=== PATIENT | male | born 1955 | race Caucasian/White ===

== ENCOUNTER 2017-06-13 13:46 | Inpatient (IN) ==
--- NOTE | 2017-06-13 14:29 | Emergency Department Note ---
Weakness HPI - General Chief complaint: Weakness Stated complaint: Weakness Time Seen by Provider: 06/13/17 13:53 Source: patient Mode of arrival: ambulatory Limitations: no limitations - History of Present Illness HPI Narrative: 62-year-old male presents with fatigue 2-3 weeks as well as dizziness. He states that he thought that the dizziness was due to taking his Jardiance before bed so he started taking it earlier in the day but this morning he felt dizzy when he stood up. He states the fatigue is significant and he sleeps all day and all night. He states he feels short of breath but he has sleep apnea and states that when he feels short of breath he uses his CPAP as needed. He does not think this is getting worse necessarily at night. He states that he does not necessarily have shortness of breath when walking but is mildly short of breath now. He was seen at [facility] and had orthostatic vital signs which he felt very dizzy during those. He states he has been drinking a lot of water and is eating well. He has diabetes as well. He does have a history of coronary artery bypass in 1999 and takes Plavix at this time. He denies any dark stools and is having normal bowel movements. He denies any urinary symptoms he denies nausea vomiting or diarrhea. He denies any fever chills but has had this cough for about a month. He states it is dry. He denies any abdominal pain or chest pain. He denies vision changes unless he sits up and gets lightheaded. He denies any headaches. He does take blood pressure medications and states his blood pressure is usually high. He denies any recent weight loss but states that in February 2016 he lost about 50 pounds due to a divorce. He states he has been pretty much stable since then. - Related Data Home Medications Medication Instructions Recorded Confirmed aspirin 81 mg tablet,delayed 81 mg PO QDAY 01/15/16 05/22/17 release ibuprofen 200 mg capsule 800 mg PO ONCE 01/15/16 05/22/17 melatonin 10 mg capsule 10 mg PO HS 01/15/16 05/22/17 Previous Rx's Medication Instructions Recorded omeprazole 20 mg capsule,delayed 20 mg PO QDAY #90 cap 07/08/16 release insulin syringe-needle U-100 1 mL See Dose Instructions .ROUTE 07/10/16 31 gauge x 5/16" .MEDSUPPLY #100 each blood sugar diagnostic strips 0 applic .ROUTE .MEDSUPPLY #100 07/29/16 each MDD 4 times daily losartan 100 mg tablet 100 mg PO QDAY #90 tab 07/30/16 insulin glargine 100 unit/mL 30 unit SUB-Q .nightly #10 ml 10/17/16 subcutaneous solution metformin 1,000 mg tablet 1,000 mg PO BID #180 tab 10/17/16 isosorbide mononitrate ER 60 mg 120 mg PO QAM #180 tab 10/21/16 tablet,extended release 24 hr carvedilol 25 mg tablet 25 mg PO BID #180 tab 02/20/17 clopidogrel 75 mg tablet 75 mg PO QDAY #90 tab 03/07/17 spironolactone 25 mg tablet 25 mg PO QAM #90 tab 03/07/17 blood-glucose meter See Dose Instructions .ROUTE 04/16/17 .MEDSUPPLY #1 each Nitroglycerin [Nitrostat] 0.4 mg SL Q5M PRN #20 tab 05/05/17 empagliflozin 25 mg tablet 25 mg PO QDAY #90 tab 05/05/17 pramipexole 0.25 mg tablet 0.125 mg PO QHS #90 tab 05/08/17 amlodipine 10 mg tablet 10 mg PO QDAY #90 tab 05/12/17 atorvastatin 40 mg tablet 40 mg PO QDAY #90 tab 05/12/17 fluoxetine 20 mg capsule 20 mg PO QDAY #90 cap 05/12/17 furosemide 20 mg tablet 20 mg PO BID #180 tab 05/12/17 gabapentin 600 mg tablet 600 mg PO Q8H #270 tab 05/22/17 Blood Glucose Test strips See Dose Instructions .ROUTE 05/26/17 .MEDSUPPLY #100 each NS MDD 4 times daily Allergies Allergy/AdvReac Type Severity Reaction Status Date / Time No Known Drug Allergies Allergy Verified 06/13/17 13:49 Review of Systems All systems ED: reviewed and negative except as stated. Past Medical History - Past Medical History Medical history: Reports: CHF, coronary artery disease, DM, hyperlipidemia, hypertension, peripheral artery disease, other Psychiatric history: Reports: depression Surgical history ED: Reports: angioplasty/stent, cholecystectomy, coronary bypass (CABG), orthopedic, other (knee) Family history: Reports: non-contributory - Social History smoking status: Never smoker Physical Exam Limitations: no limitations General appearance: alert, in no apparent distress Head: atraumatic Eye: Present: normal appearance. Absent: conjunctival injection Neck: Present: normal inspection, full ROM Chest: Present: normal inspection, symmetric chest wall rise Respiratory: Absent: normal lung sounds bilaterally (decreased lung sounds left lower lobe), wheezes Cardiovascular: Present: regular rate, normal heart sounds, other (right carotid shows very faint bruit on auscultation) Abdominal: Present: soft, normal bowel sounds. Absent: tenderness Extremities: Present: normal inspection, full ROM. Absent: pedal edema Neurological: Present: alert, oriented X3, CN II-XII intact Psychiatric: Present: normal affect, normal mood Skin: Present: warm, dry, intact Course Course Narrative: He was out on 2 liters of oxygen. Never in any distress or tachypneic Vital Signs Temperature 98.3 F 06/13/17 13:47 Pulse Rate 81 06/13/17 13:47 Respiratory Rate 14 06/13/17 13:47 Blood Pressure 113/70 06/13/17 13:47 Pulse Oximetry (%) 94 06/13/17 13:47 Temperature 98.3 F 06/13/17 13:47 Pulse Rate 79 06/13/17 14:46 Respiratory Rate 17 06/13/17 14:16 Blood Pressure 129/73 06/13/17 14:46 Pulse Oximetry (%) 90 06/13/17 14:46 Weakness - MDM Narrative Medical decision making narrative: Previous labs drawn at [facility] and these were reviewed. He had an elevated white count of 16. Mildly elevated calcium. Elevated BUN. He does have an elevated lactic acid as well and had a therapeutic/diagnostic thoracentesis. He will be admitted. - Lab Data Lab results reviewed: Yes I reviewed the patient's lab results. Lab Results 06/13/17 06/13/17 06/13/17 Range/Units 14:23 14:23 14:23 POC PT (11.9-14.5) sec PT POC INR (0.9-1.2) INR D-Dimer TNP VBG Lactic Acid 3.5 H (0.5-2.2) mmol/L Troponin T < 0.01 (0-0.03) ng/ml NT-Pro-B Natriuret Pep (0-125) pg/ml 06/13/17 06/13/17 06/13/17 Range/Units 14:23 14:23 15:25 POC PT 15.2 H (11.9-14.5) sec PT Cancelled POC INR 1.3 H (0.9-1.2) INR Cancelled D-Dimer VBG Lactic Acid (0.5-2.2) mmol/L Troponin T (0-0.03) ng/ml NT-Pro-B Natriuret Pep 484.4 H (0-125) pg/ml - Radiology Data Radiology results reviewed: Yes I reviewed the patient's radiology results. Large left lower pleural effusion - EKG Data EKG attestation: Yes I reviewed and interpreted this EKG. EKG results narrative: No signs of ischemia Disposition Pt seen by DIETITIAN HELPER/PA only: No Clinical Impression: Pleural effusion, Congestive heart failure (CHF), Sepsis Disposition: Xfer As Inpt ([facility]) Condition: Fair Referrals: Fritz Schwartz DO [Primary Care Provider] -
[2017-06-13] MEDS ORDERED: 0.9 % SODIUM CHLORIDE 1,000 ML IV SCH ×2 (14:30→17:04)
[2017-06-13] MEDS ORDERED: cefTRIAXone 1 GM VIAL IV ONE ×2 (14:51→17:22)
--- NOTE | 2017-06-13 14:54 | XRay Report ---
CLINICAL INFORMATION: Cough COMPARISON: 03/23/2016 FINDINGS: Mild cardiomegaly is unchanged. Mediastinum and pulmonary vessels are normal. A large left pleural effusion has developed resulting in compressive atelectasis of the entire left lower lobe and lingula. The lungs are clear. Bones and soft tissues are unremarkable IMPRESSION: Large left pleural effusion resulting in compressive atelectasis of the entire left lower lobe and lingula Interpreted and Authenticated by: Fritz Sood 06/13/17
[2017-06-13 15:28] LABS: proBNP 484.4 pg/ml (0-125)
--- NOTE | 2017-06-13 16:55 | XRay Report ---
CLINICAL INFORMATION: Post left thoracentesis - 2 L of fluid removed COMPARISON: Prethoracentesis two-view chest x-ray from earlier today 06/13/2017 1435 hours FINDINGS: Heart size, mediastinum and pulmonary vessels are normal. Following left thoracentesis, only small residual left pleural effusion. No pneumothorax The left lower lobe and lingula are subtotally reexpanded. The remaining lungs are unremarkable. IMPRESSION: Following left thoracentesis, only small residual pleural effusion. Left lower lobe and lingula have almost totally reexpanded. There is no pneumothorax or other complication from the procedure Interpreted and Authenticated by: Fritz Sood 06/13/17
[2017-06-13] MEDS ORDERED: ACETAMINOPHEN 325 MG TABLET PO PRN (17:04)
[2017-06-13] MEDS ORDERED: ONDANSETRON 4 MG/2 ML VIAL IV PRN (17:04)
[2017-06-13] MEDS ORDERED: HYDROcodone/APAP 5/325MG TABLET PO PRN (17:04)
[2017-06-13] MEDS ORDERED: NALOXONE HCL 0.4 MG/ML VIAL IV PRN (17:04)
--- NOTE | 2017-06-13 17:12 | Ultrasound Report ---
Ultrasound-guided thoracentesis CLINICAL INFORMATION: Large left pleural effusion TECHNIQUE: Procedure and risks including possibility of bleeding, infection, and pneumothorax were explained to the patient. The understood and wished to proceed. With the patient in upright position, the fluid was first sonographically localized over the posterior left 10th intercostal space at posterior axillary line. The skin overlying this region was marked, prepped and locally anesthetized with 1% lidocaine using a 25-gauge needle to the level the parietal pleura. An 18-gauge Yueh needle was then advanced under sonographic guidance into the pleural fluid and approximately 2 L of simple appearing transudative fluid was aspirated. Post procedure scanning shows only minimal residual fluid. Patient tolerated procedure well without apparent complication. Follow-up chest x-ray to be obtained IMPRESSION: Successful thoracentesis yielding 2 L transudative appearing simple pleural fluid. No apparent complication Interpreted and Authenticated by: Fritz Sood 06/13/17
[2017-06-13] MEDS ORDERED: traZODone HCL 50 MG TABLET PO PRN (17:29)
[2017-06-13] MEDS ORDERED: DEXTROSE 31 GM ORAL.SUSP PO PRN (17:29)
[2017-06-13] MEDS ORDERED: DEXTROSE 50% 50 ML VIAL IV PRN (17:29)
[2017-06-13] MEDS ORDERED: NITROGLYCERIN 0.4 MG TAB.SUBL SL PRN (17:29)
[2017-06-13] MEDS ORDERED: cefTRIAXone 2 GM VIAL IV SCH (17:30)
--- NOTE | 2017-06-13 17:39 | Internal Med History&Physical ---
Medical - H&P: HPI Patient information: Note initiated : 06/13/17 at 5:32 pm Service Date, if different from initiated Date: [] Patient: Bishnu Bailey a 62 y/o M admitted on 06/13/17 for Weakness. Chief Complaint: [] History of present illness: Mr. Bailey is a 62 year old Male with h/o cad, dm, htn, s/p cabg, presents ot the ER with complaints of weakness fatigue, poor appertite and c ough x 4 weeks. The patient notes that he was doing ok approximatley 4 weeks ago, the he noted a gradual decline in his condition, he was more tired, and fatigued, wanting to sleep all the time, no desire to eat or drink much. He noted he was very short of breath on minimal activity. this was accompained by a cough, which was dry. There were no aggravating or reliving factors to patients symtpmos, he just progressively got worse. He notes he got dizzy maddi when he stood up or go up, is presently on jardiance. The patient symptoms got worse and therefore he was asked to be seen in the urgent care clinic In the clinic the patient was dizzy, orthostatic were postive and labs showed leucocytosis. He was therefor referred ot the ER for further evaluation In the ER his CXR Was noted to have new onset left sided pleural effusion. Given his elevated leucocytosis, and effusion, and cough, blood cx drawn and rocephin given. Pt also was noted to have elevated lactic acid. pt was sent to [facility] guided thoracocentesis and 2 L clear fluid removed, pt was presented to the hospital for admission. All systems: reviewed and no additional remarkable complaints except as stated ( as per HPI) Medical - H&P: [facility] Medical history: Medical History (Last Reviewed 06/13/17 @ 12:09 by Arely Mosqueda DO) Chest pain (Acute) Burn (Acute) Toe sprain (Acute) Dental abscess (Acute) Suicidal ideation (Acute) Pleural effusion (Acute) Sepsis (Acute) Fatigue (Acute) Slow transit constipation (Chronic) Chronic pain syndrome (Chronic) PVD (peripheral vascular disease) (Chronic) Pain aggravated by physical activity (Chronic) Muscle weakness (Chronic) Localized edema (Chronic) Left leg weakness (Chronic) Edema of left lower extremity (Chronic) Left leg cellulitis (Chronic) Rash and other nonspecific skin eruption (Chronic) Problem related to primary support group (Chronic) Rash of groin (Chronic) Family dysfunction (Chronic) 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) Pain (Chronic) FPC (current) use of insulin (Chronic) Major depressive disorder, recurrent episode (Chronic) Muscular abdominal pain in left flank (Chronic) Other forms of angina pectoris (Chronic) Postsurgical aortocoronary bypass status (Chronic) Angina of effort (Chronic) Morbid obesity with BMI of 40.0-44.9, adult (Chronic) Insomnia (Chronic) Obstructive sleep apnea (Chronic) Tobacco use disorder (Chronic) Aortocoronary bypass status (Chronic) Mixed hyperlipidemia (Chronic) Major depressive disorder with single episode (Chronic) Hypertensive heart disease with CHF (Chronic) Heart disease (Chronic) Atherosclerosis of autologous artery coronary artery bypass graft with unstable angina pectoris (Chronic) Combined pelvic and perineal pain in male (Chronic) Hx of colonic polyp (Chronic) Change in bowel habits (Chronic) Benign hypertensive heart disease with CHF (congestive heart failure) (Chronic) Uncontrolled type 2 diabetes mellitus with peripheral neuropathy (Chronic) Pelvic pain (Chronic) 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) Pain of left hip (Chronic) Hypotension (Acute) Reflux esophagitis (Chronic) Psychosexual dysfunction (Chronic) Mild diastolic dysfunction (Chronic) Tobacco use disorder (Chronic) Impotence, organic (Chronic) Coronary artery disease involving autologous artery coronary bypass graft with unstable angina pectoris (Chronic) Constipation (Chronic) Iron deficiency anemia (Chronic) Vitamin D deficiency (Chronic) Morbid obesity (Chronic) Allergic rhinitis (Chronic) RLS (restless legs syndrome) (Chronic) Left leg pain (Chronic) Obstructive sleep apnea (Chronic) Congestive heart failure (CHF) (Chronic) Cardiomyopathy, hypertensive (Chronic) Angina pectoris (Chronic) Insomnia (Chronic) High cholesterol (Chronic) Hypertension (Chronic) Heart trouble (Chronic) Type 2 diabetes mellitus (Chronic) Depression (Chronic) Surgical history: Past Surgical History (Last Reviewed 03/24/17 @ 09:13 by Fritz Schwartz DO) History of cholecystectomy (Chronic) History of heart bypass surgery (Chronic) History of knee surgery (Chronic) Pertinent family history: Family History (Last Reviewed 03/24/17 @ 09:13 by Fritz Schwartz DO) Family/Other Hypertension N/o lung cnacer h/o cancer in family, brother, he is not sure what type of cancer Medical - H&P: Meds Home Medications Medication Instructions Recorded Confirmed Type aspirin 81 mg tablet,delayed 81 mg PO QDAY 01/15/16 05/22/17 History release ibuprofen 200 mg capsule 800 mg PO ONCE 01/15/16 05/22/17 History melatonin 10 mg capsule 10 mg PO HS 01/15/16 05/22/17 History omeprazole 20 mg capsule,delayed 20 mg PO QDAY #90 cap 07/08/16 05/22/17 Rx release insulin syringe-needle U-100 1 mL See Dose Instructions .ROUTE 07/10/16 Rx 31 gauge x 10/22" .MEDSUPPLY #100 each blood sugar diagnostic strips 0 applic .ROUTE .MEDSUPPLY #100 07/29/16 05/22/17 Rx each MDD 4 times daily losartan 100 mg tablet 100 mg PO QDAY #90 tab 07/30/16 05/22/17 Rx insulin glargine 100 unit/mL 30 unit SUB-Q .nightly #10 ml 10/17/16 05/22/17 Rx subcutaneous solution metformin 1,000 mg tablet 1,000 mg PO BID #180 tab 10/17/16 05/22/17 Rx isosorbide mononitrate ER 60 mg 120 mg PO QAM #180 tab 10/21/16 05/22/17 Rx tablet,extended release 24 hr carvedilol 25 mg tablet 25 mg PO BID #180 tab 02/20/17 05/22/17 Rx clopidogrel 75 mg tablet 75 mg PO QDAY #90 tab 03/07/17 05/22/17 Rx spironolactone 25 mg tablet 25 mg PO QAM #90 tab 03/07/17 05/22/17 Rx blood-glucose meter See Dose Instructions .ROUTE 04/16/17 05/22/17 Rx .MEDSUPPLY #1 each Nitroglycerin [Nitrostat] 0.4 mg SL Q5M PRN #20 tab 05/05/17 05/22/17 Rx empagliflozin 25 mg tablet 25 mg PO QDAY #90 tab 05/05/17 05/22/17 Rx pramipexole 0.25 mg tablet 0.125 mg PO QHS #90 tab 05/08/17 05/22/17 Rx amlodipine 10 mg tablet 10 mg PO QDAY #90 tab 05/12/17 05/22/17 Rx atorvastatin 40 mg tablet 40 mg PO QDAY #90 tab 05/12/17 05/22/17 Rx fluoxetine 20 mg capsule 20 mg PO QDAY #90 cap 05/12/17 05/22/17 Rx furosemide 20 mg tablet 20 mg PO BID #180 tab 05/12/17 05/22/17 Rx gabapentin 600 mg tablet 600 mg PO Q8H #270 tab 05/22/17 05/22/17 Rx Blood Glucose Test strips See Dose Instructions .ROUTE 05/26/17 Rx .MEDSUPPLY #100 each NS MDD 4 times daily Allergies Allergy/AdvReac Type Severity Reaction Status Date / Time No Known Drug Allergies Allergy Verified 06/13/17 13:49 Medical - H&P: Exam - Constitutional Vitals: Temp Pulse Resp BP Pulse Ox 98.3 F 79 17 129/73 90 06/13/17 16:55 06/13/17 16:55 06/13/17 16:55 06/13/17 16:55 06/13/17 16:55 Exam: GENERAL: The patient is a well-developed, well-nourished in no apparent distress. Is alert and oriented x3. VITAL SIGNS: Reviewed and as noted elsewhere. HEENT: Head is normocephalic and atraumatic. Extraocular muscles are intact. Pupils are equal, round, and reactive to light. Nares appeared normal. Mouth appears any without lesions. Mucous membranes are dry NECK: Normal to inspection, Supple, No lymphadenopathy or thyromegaly. LUNGS: Air entry decreased on left base, some left basilar crackles, no wheezing ,. No accessory muscles of respiration HEART: Regular rate and rhythm normal, S1 and S2 heard, no Gallop, S3 or Rub Noted, No Gross murmur heard. ABDOMEN: Soft, nontender, and nondistended. Positive bowel sounds. No hepatosplenomegaly was noted. EXTREMITIES: No cyanosis, clubbing, rash, lesions or edema. NEUROLOGIC: Cranial nerves II through XII are grossly intact. Motor and Sensory System Grossly Intact PSYCHIATRIC: Normal affect, Normal Mood. Appropriate Behavior. SKIN: No ulceration or wounds noted, No jaundice, No rash noted. Medical - H&P: Reslt - Labs Labs: Cardiac Enzymes 01/05/18 Range/Units 14:23 Troponin T < 0.01 (0-0.03) ng/ml Medical - H&P: A/P - Narrative A/P Narrative: A/P Leucocytosis/ Weakness: likely secondary to pna, iv rocephin and zithromax, follow cultures Pleural effusion: new onset, 2L fluid removed, repeat x ray shows still some fluid left, plan to get CT in AM if transudative fluid, await results of fluid analysis. DM: Hold oral meds, start on lantus and ssi while inpatient. Hypotension/ Relative/ Dizziness/ Orthostatic symptoms: Due to dehydration, poor oral intake, hold amlodipine and isosorbide and lasix, continue coreg, losartan and aldactone. IV fluids, BP is quite good, give 4 L saline. (hold if gets sob) Lactic acidosis: IV fluids, recheck lactate, BP is quite good in the hospital, HTN: continue coreg, aldactone, losartan, hold lasix, isosorbide and amlodpine for now. CAD: S/P cabg, no chest pain, trop neg, resume asa, plavix, and beta kelton. HLD on statin continue same Neuropathy: on neurontin, continue same Depression: on fluoexetine, continue same DVT hep sq Diet Carb Consistent, Cardiac, Full code. Social History - Social History marital status: - Tobacco smoking status: Never smoker - Alcohol alcohol intake frequency: does not drink - Substance use substance use type: does not use
[2017-06-13 18:07] LABS: Amylase,Pleural Fluid 68 U/L; Glucose,Pleural Fluid 148 mg/dL; LDH,Pleural Fluid 146 U/L
[2017-06-13 18:13] LABS: pH,Body Fluid 7.54
[2017-06-13 18:43] LABS: Appearance,Pleural Fluid CLOUDY; Color,Pleural Fluid YELLOW; Lymphocytes,Pleural Fluid 42 %; Neutrophils,Pleural Fluid 45 %; Nucleated Cells,Pleural Fld 980 /cumm; RBC,Pleural Fluid < 50000 /cumm
[2017-06-13] MEDS ORDERED: AZITHROMYCIN 500 MG in DEXTROSE 5% IN WATER 250 ML IV ONE (19:00)
[2017-06-13] MEDS: CARVEDILOL 12.5 MG TABLET PO SCH (19:13)
[2017-06-13 19:34] LABS: Total Protein,Body Fluid 3.7 gm/dL
[2017-06-13] MEDS: IPRATROPIUM/ALBUTEROL 3 ML AMPUL.NEB NEB SCH (19:45)
[2017-06-13] MEDS ORDERED: PRAMIPEXOLE 0.25 MG TABLET PO SCH (21:00)
[2017-06-13] MEDS ORDERED: INSULIN GLARGINE, HUMAN 1 UNIT/0.01 ML SQ SCH (21:00)
[2017-06-13] MEDS ORDERED: ATORVASTATIN 20 MG TABLET PO SCH (21:00)
[2017-06-13] MEDS: 0.9 % SODIUM CHLORIDE 1,000 ML IV SCH (21:27)
[2017-06-13] MEDS: HEPARIN 5,000 UNIT/ML VIAL SQ SCH (21:34)
[2017-06-13] MEDS: INSULIN LISPRO 1 UNIT/0.01 ML UNIT SQ SCH (21:34)
[2017-06-13] MEDS: FAMOTIDINE 20 MG TABLET PO SCH (21:35)
[2017-06-13] MEDS: GABAPENTIN 300 MG CAPSULE PO SCH (21:35)
[2017-06-13 22:03] LABS: Appearance,Urine CLEAR; Bacteria,Urine 0 /hpf (0); Bilirubin,Urine NEG (NEG); Color,Urine YELLOW; Glucose,Urine (UA) >=500 mg/dL (NEG); Leukocyte Esterase,Urine NEG /uL (NEG); Mucus,Urine FEW /hpf (0); Nitrate,Urine NEG (NEG); Protein,Urine NEG (NEG); Specific Gravity,Urine 1.028 (1.000-1.035); Urine Blood NEG mg/dL (<0.03); Urine RBC < 1 /hpf (0-1); Urine Squamous Epithelial Cell 0 /hpf (0-4); Urine WBC < 1 /hpf (0-4); Urobilinogen,Urine NEG (NEG)
[2017-06-14] MEDS: IPRATROPIUM/ALBUTEROL 3 ML AMPUL.NEB NEB SCH ×4 (02:18→19:33)
[2017-06-14] MEDS: 0.9 % SODIUM CHLORIDE 1,000 ML IV SCH (02:52)
[2017-06-14] MEDS: GABAPENTIN 300 MG CAPSULE PO SCH ×3 (05:48→21:41)
[2017-06-14 06:15] LABS: Basophils # (Auto) 0 K/mcL (0.0-0.3); Basophils % (Auto) 0.2 % (0.0-2.0); Eosinophils # (Auto) 0.1 K/mcL (0.0-0.7); Eosinophils % (Auto) 1.3 % (0.0-7.0); Granulocytes % (Auto) 79.9 % (38.0-78.0); Lymphocytes # (Auto) 1.1 K/mcL (1.5-4.8); Lymphocytes % (Auto) 10.3 % (15.5-49.0); Mean Cell Volume 79.1 fL (80.0-100.0); Mean Corpuscular HGB Conc 32.5 g/dL (31.0-36.0); Mean Corpuscular Hemoglobin 25.8 pg (26.0-34.0); Monocytes # (Auto) 0.9 K/mcL (0.1-0.9); Monocytes % (Auto) 8.3 % (1.0-12.0); Platelet Count 166 K/mcL (140-440); RBC 4.02 M/mcL (4.50-5.90); Red Cell Distribution Width 14.3 % (11.5-14.5)
[2017-06-14 06:19] LABS: ALT/SGPT 6 U/l (0-40); Albumin 2.5 gm/dL (3.2-5.2); Albumin/Globulin Ratio 0.9 (1.0-2.3); Alkaline Phosphatase 79 U/L (39-117); Bilirubin,Direct < 0.2 mg/dL (0.0-0.3); Blood Urea Nitrogen 24 mg/dl (8-23); Gamma Glutamyl Transpeptidase 11 U/L (8-61); Magnesium 1.3 mg/dL (1.6-2.5); Uric Acid 5.7 mg/dL (2.5-8.0)
[2017-06-14] MEDS ORDERED: OMEPRAZOLE 20 MG CAPSULE PO SCH (07:30)
[2017-06-14] MEDS ORDERED: SPIRONOLACTONE 25 MG TABLET PO SCH (09:00)
[2017-06-14] MEDS ORDERED: LOSARTAN 50 MG TABLET PO SCH (09:00)
[2017-06-14] MEDS ORDERED: AZITHROMYCIN 250 MG TABLET PO SCH (09:00)
[2017-06-14] MEDS ORDERED: ASPIRIN 81 MG TAB.CHEW PO SCH (09:00)
[2017-06-14] MEDS ORDERED: CLOPIDOGREL 75 MG TABLET PO SCH (09:00)
[2017-06-14] MEDS ORDERED: FLUoxetine HCL 20 MG CAPSULE PO SCH (09:00)
[2017-06-14] MEDS ORDERED: cefTRIAXone 2 GM VIAL IV SCH (09:00)
[2017-06-14] MEDS ORDERED: IOPAMIDOL 100 ML BOTTLE IV ONE (09:25)
[2017-06-14] MEDS: CARVEDILOL 12.5 MG TABLET PO SCH ×2 (09:35→17:29)
[2017-06-14] MEDS: HEPARIN 5,000 UNIT/ML VIAL SQ SCH ×2 (09:35→21:43)
[2017-06-14] MEDS: FAMOTIDINE 20 MG TABLET PO SCH ×2 (09:35→21:41)
[2017-06-14] MEDS: INSULIN LISPRO 1 UNIT/0.01 ML UNIT SQ SCH ×4 (09:38→21:42)
--- NOTE | 2017-06-14 12:00 | Internal Med Progress Note ---
Medical - PN: Subj Patient information: Note initiated : 06/14/17 at 11:55 am Service Date, if different from initiated Date: [] Patient: Bishnu Bailey a 62 y/o M admitted on 06/13/17 for Weakness. Chief Complaint: [] Interval history: Mr. Bailey is a 62 year old Male with h/o cad, dm, htn, s/p cabg, presents ot the ER with complaints of weakness fatigue, poor appertite and c ough x 4 weeks. The patient notes that he was doing ok approximatley 4 weeks ago, the he noted a gradual decline in his condition, he was more tired, and fatigued, wanting to sleep all the time, no desire to eat or drink much. He noted he was very short of breath on minimal activity. this was accompained by a cough, which was dry. There were no aggravating or reliving factors to patients symtpmos, he just progressively got worse. He notes he got dizzy maddi when he stood up or go up, is presently on jardiance. The patient symptoms got worse and therefore he was asked to be seen in the urgent care clinic In the clinic the patient was dizzy, orthostatic were postive and labs showed leucocytosis. He was therefor referred ot the ER for further evaluation In the ER his CXR Was noted to have new onset left sided pleural effusion. Given his elevated leucocytosis, and effusion, and cough, blood cx drawn and rocephin given. Pt also was noted to have elevated lactic acid. pt was sent to [facility] guided thoracocentesis and 2 L clear fluid removed, pt was presented to the hospital for admission. Jun 14 Patient seen examined, no acute overnight issues, tolerating po diet well, was sitting at the table and enjoying his breakfast He did not sleep well but beyond that did not have any other issues his labs show improved wbc, his CT scan done this AM read pending, Pleural fluid analysis shows exudative fluid by ldh and protein criteria, cytoloy pending, ph not suggestive of empyema, microbiology neg so far. Pertinent ROS: Denies headache, Denies chest pain, palpitations prseent cough and sob. Denies abdominal pain, nausea or vomiting. - Constitutional Vitals: Vital Signs Temp Pulse Resp BP Pulse Ox 98.0 F 82 16 141/90 93 06/14/17 06:15 01/06/18 07:51 06/14/17 07:51 06/14/17 06:15 06/14/17 07:51 Period Temp Pulse Resp BP Sys/Monzon Pulse Ox Last 24 Hr 98.0 F-99.6 F 73-82 14-19 113-160/69-90 90-96 Intake and Output 06/13/17 06/14/17 06/14/17 21:59 05:59 13:59 Intake Total 1600 / 1600 200 / 200 Output Total 1100 / 1100 500 / 500 Balance 500 / 500 -300 / -300 Weight 242 lb Intake & Output: Intake & Output 06/13/17 06/14/17 06/14/17 21:59 05:59 13:59 Intake Total 1600 / 1600 200 / 200 Output Total 1100 / 1100 500 / 500 Balance 500 / 500 -300 / -300 Weight 242 lb Intake: IV 1000 / 1000 Sodium Chloride 0.9% 1,000 ml @ 1000 / 1000 125 mls/hr IV .Q8H [facility] Rx#: [id number] Oral 600 / 600 200 / 200 Output: Void Amount 1100 / 1100 500 / 500 Other: Meal Breakfast Percent of Meal Consumed 100% Feeding Ability Independent # Voids 1 Exam: Constitutional; Afebrile, cooperative, alert, not in distress. Eyes- No icterus, , No periorbital swelling Ears- Ext ear normal, hearing normal to conversation. Neck- Midline trachea, supple Respiratory system: Air Entry decrease on left base, no crackles on right no wheezing, not in resp distress. CVS- Rate rhythm regular, S1,S2 heard, no gallop, no rub. 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 Medical - PN: Obj Da - Labs CBC & Chem 7: 06/14/17 03:39 06/14/17 03:39 Labs: Abnormal Lab Results 06/14/17 06/14/17 06/13/17 03:39 03:39 21:20 RBC 4.02 L Hgb 10.4 L Hct 31.8 L MCV 79.1 L MCH 25.8 L Gran % 79.9 H Lymph % (Auto) 10.3 L Gran # 8.4 H Lymph # (Auto) 1.1 L POC PT POC INR VBG Lactic Acid BUN 24 H Glucose 139 H Phosphorus 2.1 L Magnesium 1.3 L NT-Pro-B Natriuret Pep Total Protein 5.3 L Albumin 2.5 L Albumin/Globulin Ratio 0.9 L Triglycerides 198 H Urine Glucose (UA) >=500 A 06/13/17 06/13/17 06/13/17 16:48 15:25 14:23 RBC Hgb Hct MCV MCH Gran % Lymph % (Auto) Gran # Lymph # (Auto) POC PT 15.2 H POC INR 1.3 H VBG Lactic Acid BUN Glucose Phosphorus Magnesium NT-Pro-B Natriuret Pep 484.4 H Total Protein 5.6 L Albumin Albumin/Globulin Ratio Triglycerides Urine Glucose (UA) 06/13/17 14:23 RBC Hgb Hct MCV MCH Gran % Lymph % (Auto) Gran # Lymph # (Auto) POC PT POC INR VBG Lactic Acid 3.5 H BUN Glucose Phosphorus Magnesium NT-Pro-B Natriuret Pep Total Protein Albumin Albumin/Globulin Ratio Triglycerides Urine Glucose (UA) Meds: Medications Acetaminophen (Tylenol) 650 mg PO Q6HP PRN PRN Reason: PAIN/FEVER > 101 Hydrocodone Bitart/Acetaminophen (Rolette 5/325mg) 1 tab PO Q4HP PRN PRN Reason: PAIN LEVEL 3-6 Albuterol/Ipratropium (Duoneb) 3 ml NEB Q6HRT [facility] Last Admin: 06/14/17 07:50 Dose: 3 ml Aspirin (Aspirin) 81 mg PO DAILY [facility] Last Admin: 06/14/17 09:35 Dose: 81 mg Atorvastatin Calcium (Lipitor) 40 mg PO HS [facility] Last Admin: 06/13/17 21:41 Dose: 40 mg Azithromycin (Zithromax) 250 mg PO DAILY [facility] Stop: 06/17/17 09:01 Last Admin: 06/14/17 09:35 Dose: 250 mg Carvedilol (Coreg) 25 mg PO BIDCC [facility] Last Admin: 06/14/17 09:35 Dose: 25 mg Ceftriaxone Sodium (Rocephin) 2 gm IV Q24H [facility] Last Admin: 06/14/17 09:42 Dose: 2 gm Clopidogrel Bisulfate (Plavix) 75 mg PO DAILY [facility] Last Admin: 06/14/17 09:35 Dose: 75 mg Dextrose (Dextrose 50%) 0 ml IV UD PRN PRN Reason: Hypoglycemia Diagnostic Test (Pha) (Accu-Chek) 1 each FS ACHS [facility] Last Admin: 06/14/17 09:38 Dose: 1 each Famotidine (Pepcid) 20 mg PO BID [facility] Last Admin: 06/14/17 09:35 Dose: 20 mg Fluoxetine HCl (Prozac) 20 mg PO DAILY [facility] Last Admin: 06/14/17 09:35 Dose: 20 mg Gabapentin (Neurontin) 600 mg PO Q8 [facility] Last Admin: 06/14/17 05:48 Dose: 600 mg Glucose (Insta-Glucose) 15 gm PO PRN PRN PRN Reason: Hypoglycemia Heparin Sodium (Porcine) (Heparin) 5,000 unit SQ Q12 [facility] Last Admin: 06/14/17 09:35 Dose: 5,000 unit Sodium Chloride (Sodium Chloride 0.9%) 1,000 mls @ 125 mls/hr IV .Q8H [facility] Stop: 06/14/17 12:39 Last Admin: 06/14/17 02:52 Dose: 125 mls/hr Insulin Glargine (Lantus) 30 unit SQ [facility] Last Admin: 06/13/17 21:34 Dose: 30 unit Insulin Human Lispro (Humalog) 0 unit SQ [facility] PRN Reason: Protocol Last Admin: 06/14/17 09:38 Dose: 3 unit Losartan Potassium (Cozaar) 100 mg PO DAILY [facility] Last Admin: 06/14/17 09:35 Dose: 100 mg Naloxone HCl (Narcan) 0.1 mg IV Q2MIN PRN PRN Reason: Opiate Reversal Nitroglycerin (Nitrostat) 0.4 mg SL Q5M PRN PRN Reason: Chest Pain Omeprazole (Prilosec) 20 mg PO ACB [facility] Last Admin: 06/14/17 09:35 Dose: 20 mg Ondansetron HCl (Zofran) 4 mg IV Q4HP PRN PRN Reason: Nausea And Vomiting Pramipexole Dihydrochloride (Mirapex) 0.125 mg PO HS [facility] Last Admin: 06/13/17 21:42 Dose: 0.125 mg Spironolactone (Aldactone) 25 mg PO DAILY [facility] Last Admin: 06/14/17 09:35 Dose: 25 mg Trazodone HCl (Desyrel) 25 mg PO HSP PRN PRN Reason: Insomnia Medical - PN: A/P - Time Spent With Patient Total time spent is greater than 50% in coordination of care (as documented) at patient's floor/unit and/or counseling patient: - Narrative A/P Narrative: A/P Leucocytosis/ Weakness/ Pneumonia : Wbc count back to normal today, likely secondary to pna, iv rocephin and zithromax, follow cultures, neg growth so far. Pleural effusion, Exudative by LDH/ Protein Criteria : new onset due to pna? , 2L fluid removed yesterday, still some fluid present, CT done this AM, results pending. DM: Hold oral meds, start on lantus and ssi while inpatient. Glucose elevated, on lantus 30, qhs, and humalong ssi, increase from low to medium scale protocol. Hypotension/ Relative/ Dizziness/ Orthostatic symptoms: Due to dehydration, poor oral intake, hold amlodipine and isosorbide and lasix, continue coreg, losartan and aldactone. IV fluids, bp stable so far, pt tolerating po diet well , Lactic acidosis: IV fluids, recheck lactate, BP is quite good in the hospital, HTN: continue coreg, aldactone, losartan, hold lasix,dnd amlodpine for now. Given that bp is stable and elevated, resume isosorbide today. CAD: S/P cabg, no chest pain, trop neg, resume asa, plavix, and beta kelton and nitrate. HLD on statin continue same Neuropathy: on Neurontin, continue same Depression: on fluoxetine, continue same DVT hep sq Diet Carb Consistent, Cardiac, Full code. Medical - PN: Qual - Stroke Symptom Onset Unknown: No - VTE Deep Vein Thrombosis/Pulmonary Embolism Present on Admission: No
[2017-06-14] MEDS ORDERED: INSULIN LISPRO 1 UNIT/0.01 ML UNIT SQ SCH (12:10)
[2017-06-14] MEDS ORDERED: ISOSORBIDE MONONITRATE 60 MG TAB.XL.24H PO SCH (12:15)
--- NOTE | 2017-06-14 12:35 | Cat Scan Report ---
CLINICAL INFORMATION: Unexplained left pleural effusion COMPARISON: None. TECHNIQUE: 80 cc of Isovue-300 were injected intravenously, and 25 seconds later, 0.625 mm helical slices were obtained from the lung apices through the bases. Following reconstruction, 2.5 mm sagittal, coronal and axial reformations were processed and reviewed at lung, mediastinal and bone windows. 7 mm axial MIPS were also obtained to optimize pulmonary nodule detection. The exam was performed using radiation dose optimization techniques including, but not limited to, automated exposure control, adjustment of the mA and/or kV according to patient size and use of iterative reconstruction technique. FINDINGS: The study was performed less than 24 hours after left thoracentesis yielding 2 L of fluid. There is a moderate recurrent left pleural effusion with compressive atelectasis of the entire left lower lobe with sparing of the superior segment. There is also moderate atelectasis of the distal superior and inferior lingula. Small right pleural effusion is noted with subsegmental atelectasis in the posterior right lower lobe. There is no pulmonary mass appreciated there is however a moderate sized enlarged lymph nodes within both danya and the inferior mediastinum including the pericarinal and azygos region. Lymph nodes range up to 16 mm. The thoracic aorta is normal in contour and caliber. There is mild enlargement central pulmonary arteries - main pulmonary diameter is 3.5 cm. This suggests pulmonary hypertension. The heart is mildly enlarged and extremely heavy calcific plaque in the coronary arteries. Sternotomy changes noted from CABG. Images through the abdomen show a small amount of ascites. There is a 7 cm low-attenuation mass within the spleen which was not seen on localizer images of the abdomen on a lumbar spine MRI nearly one year prior November 26, 2016 There is also marked increased infiltrative soft tissue in the upper retroperitoneum. This is incompletely imaged but is suspicious for either a large conglomerate of adenopathy or less likely pancreatic mass with adenopathy. The liver is grossly normal. IMPRESSION: 1. Moderate/large left pleural effusion rapidly reaccumulating following thoracentesis 24 hours prior. The effusion results in subtotal atelectasis of the left lower lobe sparing only superior segment and also lingular atelectasis. A small right pleural effusion with minor right basilar atelectasis is also noted. 2. Mildly enlarged lymph nodes in both danya and inferior mediastinum which may be benign reactive lymph note, metastatic from an unknown primary carcinoma or lymphoma. 3. Images through the abdomen show a large infiltrating upper retroperitoneal mass. A large conglomerate retroperitoneal adenopathy is suspected which could indicate lymphoma or metastatic disease from a an incompletely imaged abdominal tumor such as pancreatic cancer. It is incompletely evaluated on this chest CT study. There is also a 7 cm low-attenuation mass in the spleen which was not seen on MRI one year are and suspicious for metastases. Suggest: Abdomen and pelvic CT with oral and IV contrast. 4. Mild ascites - new Interpreted and Authenticated by: Fritz Sood 06/14/17
[2017-06-14] MEDS ORDERED: DEXTROSE 31 GM ORAL.SUSP PO PRN (14:45)
[2017-06-14] MEDS ORDERED: DEXTROSE 50% 50 ML VIAL IV PRN (14:45)
[2017-06-14] MEDS ORDERED: NALOXONE HCL 0.4 MG/ML VIAL IV PRN (14:45)
[2017-06-14] MEDS ORDERED: NITROGLYCERIN 0.4 MG TAB.SUBL SL PRN (14:45)
[2017-06-14] MEDS ORDERED: ONDANSETRON 4 MG/2 ML VIAL IV PRN (14:45)
[2017-06-14] MEDS ORDERED: ACETAMINOPHEN 325 MG TABLET PO PRN (14:45)
[2017-06-14] MEDS ORDERED: MAGNESIUM SULFATE 32.48 MEQ in DEXTROSE 5% IN WATER 100 ML IV ONE (17:30)
[2017-06-14] MEDS ORDERED: MAGNESIUM SULFATE 8.12 MEQ/2 ML VIAL ONE (18:25)
[2017-06-14] MEDS: PRAMIPEXOLE 0.25 MG TABLET PO SCH (21:40)
[2017-06-14] MEDS: traZODone HCL 50 MG TABLET PO PRN (21:41)
[2017-06-14] MEDS: ATORVASTATIN 20 MG TABLET PO SCH (21:41)
[2017-06-14] MEDS: INSULIN GLARGINE, HUMAN 1 UNIT/0.01 ML SQ SCH (21:46)
[2017-06-15] MEDS: IPRATROPIUM/ALBUTEROL 3 ML AMPUL.NEB NEB SCH ×4 (00:07→19:04)
[2017-06-15] MEDS: HYDROcodone/APAP 5/325MG TABLET PO PRN ×2 (03:19→18:49)
[2017-06-15 05:27] LABS: Basophils # (Auto) 0 K/mcL (0.0-0.3); Basophils % (Auto) 0.1 % (0.0-2.0); Eosinophils # (Auto) 0.2 K/mcL (0.0-0.7); Eosinophils % (Auto) 1.5 % (0.0-7.0); Lymphocytes # (Auto) 0.9 K/mcL (1.5-4.8); Lymphocytes % (Auto) 9.2 % (15.5-49.0); Mean Cell Volume 79.3 fL (80.0-100.0); Mean Corpuscular HGB Conc 32.8 g/dL (31.0-36.0); Monocytes # (Auto) 0.7 K/mcL (0.1-0.9); Monocytes % (Auto) 7.2 % (1.0-12.0); Platelet Count 149 K/mcL (140-440); RBC 3.75 M/mcL (4.50-5.90)
[2017-06-15] MEDS: GABAPENTIN 300 MG CAPSULE PO SCH ×3 (05:44→21:29)
[2017-06-15 06:03] LABS: ALT/SGPT 6 U/l (0-40); Albumin 2.9 gm/dL (3.2-5.2); Albumin/Globulin Ratio 1.2 (1.0-2.3); Alkaline Phosphatase 72 U/L (39-117); Bilirubin,Direct < 0.2 mg/dL (0.0-0.3); Blood Urea Nitrogen 22 mg/dl (8-23); Gamma Glutamyl Transpeptidase 9 U/L (8-61); Magnesium 1.9 mg/dL (1.6-2.5); Uric Acid 4.7 mg/dL (2.5-8.0)
[2017-06-15] MEDS: INSULIN LISPRO 1 UNIT/0.01 ML UNIT SQ SCH ×4 (07:01→21:28)
[2017-06-15] MEDS: cefTRIAXone 2 GM VIAL IV SCH (09:47)
[2017-06-15] MEDS: HEPARIN 5,000 UNIT/ML VIAL SQ SCH ×2 (09:49→21:28)
[2017-06-15] MEDS: ASPIRIN 81 MG TAB.CHEW PO SCH (09:49)
[2017-06-15] MEDS: AZITHROMYCIN 250 MG TABLET PO SCH (09:50)
[2017-06-15] MEDS: CLOPIDOGREL 75 MG TABLET PO SCH (09:50)
[2017-06-15] MEDS: FLUoxetine HCL 20 MG CAPSULE PO SCH (09:50)
[2017-06-15] MEDS: OMEPRAZOLE 20 MG CAPSULE PO SCH (09:51)
[2017-06-15] MEDS: CARVEDILOL 12.5 MG TABLET PO SCH ×2 (09:51→18:18)
[2017-06-15] MEDS: FAMOTIDINE 20 MG TABLET PO SCH ×2 (09:51→21:29)
[2017-06-15] MEDS: SPIRONOLACTONE 25 MG TABLET PO SCH (09:52)
[2017-06-15] MEDS: LOSARTAN 50 MG TABLET PO SCH (09:52)
[2017-06-15] MEDS: ISOSORBIDE MONONITRATE 60 MG TAB.XL.24H PO SCH (09:53)
--- NOTE | 2017-06-15 10:28 | Cat Scan Report ---
CLINICAL INFORMATION: Abdominal pain COMPARISON: Localizer images from Lumbar MRI from 03/29/2016 and 07/29/2016 pelvic MRI 11/30/2015. TECHNIQUE: Following enteric contrast, 80 cc of Isovue-300 were injected intravenously, and 60 seconds later, 0.625 mm helical slices were obtained from the mid heart through the subtrochanteric regions. Following reconstruction, 2.5 mm sagittal, coronal and axial reformatted images were processed and reviewed at bone, lung and soft tissue windows. Five minutes later, 0.625 mm helical slices were obtained from the mid heart through the kidneys and viewed at soft tissue windows.The exam was performed using radiation dose optimization techniques including, but not limited to, automated exposure control, adjustment of the mA and/or kV according to patient size and use of iterative reconstruction technique. FINDINGS: Moderate left pleural effusion and left lower lobe atelectasis with small right pleural effusion and subsegmental right lower lobe lobe atelectasis are unchanged in the region chest CT. The heart is mildly enlarged and there is heavy calcific plaque in the coronary arteries. Images through the abdomen show liver is normal size and configuration with mild portal triad edema. The gallbladder is surgically absent. The bile ducts are normal caliber - CBD is 6 mm. The right kidney is unremarkable. 8 cm simple cyst inferior pole left kidney demonstrates long-term stability. There is a 10 cm inhomogeneous low-attenuation lesion dominating the peripheral spleen which was not seen on older studies. There is massive retroperitoneal consolidated adenopathy throughout the abdomen including peripancreatic periaortic and pericaval region regions. There are also moderately enlarged lymph nodes in the mesenteric root and along the iliac chains There is a 4 cm low-attenuation mass in the left true pelvis, posterior to the external iliac artery and veins, which is likely a large necrotic lymph node but could indicate a second malignant process. Moderate edema in the retroperitoneal and mesenteric regions with small amount of ascites. Subcutaneous edema is also seen throughout the abdomen and pelvis Images should the pelvis show prostate, seminal vesicles and urinary bladder to be normal. Bone windows show no significant abnormality IMPRESSION: 1. Massive conglomerate of retroperitoneal adenopathy, predominantly in the peripancreatic, periaortic and pericaval regions, with enlarged lymph nodes in the mesentery root and along the iliac chains. There is vague 4.3 cm low-attenuation mass posterior to the left external iliac artery/vein which is likely a large necrotic lymph node, but a second process, such as sarcoma, should also be entertained. A 10 cm low-attenuation splenic mass is also new from previous studies. Findings are nearly pathognomonic for Non-Hodgkin's lymphoma. Consider: CT-guided percutaneous biopsy of the lymph node conglomerate and the necrotic left pelvic mass. Of note: The IVC is markedly compressed by the adenopathy placing the patient at risk for DVT 2. Moderate left pleural effusion with left lower lobe atelectasis and small right pleural effusion are unchanged Interpreted and Authenticated by: Fritz Sood 06/15/17
--- NOTE | 2017-06-15 10:30 | Internal Med Progress Note ---
Medical - PN: Subj Patient information: Note initiated : 06/15/17 at 10:19 am Service Date, if different from initiated Date: [] Patient: Bishnu Bailey a 62 y/o M admitted on 06/13/17 for Weakness. Chief Complaint: [] Interval history: Mr. Bailey is a 62 year old Male with h/o cad, dm, htn, s/p cabg, presents ot the ER with complaints of weakness fatigue, poor appertite and c ough x 4 weeks. The patient notes that he was doing ok approximately 4 weeks ago, the he noted a gradual decline in his condition, he was more tired, and fatigued, wanting to sleep all the time, no desire to eat or drink much. He noted he was very short of breath on minimal activity. this was accompained by a cough, which was dry. There were no aggravating or reliving factors to patients symptoms, he just progressively got worse. He notes he got dizzy maddi when he stood up or go up, is presently on jardiance. The patient symptoms got worse and therefore he was asked to be seen in the urgent care clinic In the clinic the patient was dizzy, orthostatic were positive and labs showed leucocytosis. He was therefor referred ot the ER for further evaluation In the ER his CXR Was noted to have new onset left sided pleural effusion. Given his elevated leucocytosis, and effusion, and cough, blood cx drawn and rocephin given. Pt also was noted to have elevated lactic acid. pt was sent to [facility] guided thoracocentesis and 2 L clear fluid removed, pt was presented to the hospital for admission. Jun 14 Patient seen examined, no acute overnight issues, tolerating po diet well, was sitting at the table and enjoying his breakfast He did not sleep well but beyond that did not have any other issues his labs show improved wbc, his CT scan done this AM read pending, Pleural fluid analysis shows exudative fluid by ldh and protein criteria, cytoloy pending, ph not suggestive of empyema, microbiology neg so far. Jun 15 Patient seen examined, feels a bit better, but still tired his X ray shows pleral effusion has recurred, HIs CT abdomen pelvis done today shows possible lymphoma Will get pulmonary advise with regards to management of recurrent pleural effusion maddi in light of malignancy diagnosis, need for pleurx cath vs repeated thoracocentesis. I discussed with Dr Cueva Oncologist crop nutrition scientist, who noted that a tissue sample would be beneficial, Will discuss with surgery vs radiology on the most feasible and efficient way to get adequate tissue sample. Cytology for pleural fluid was ordered. Plan of care reviewed with the patient, who is in agreement with same. Pertinent ROS: Denies headache, dizziness Denies chest pain, palpitations cough and shortness of breath present, and better today. Denies abdominal pain, nausea or vomiting. - Constitutional Vitals: Vital Signs Temp Pulse Resp BP Pulse Ox 98.3 F 67 16 150/74 94 06/15/17 07:07 06/15/17 07:36 06/15/17 07:36 06/15/17 03:17 06/15/17 08:00 Period Temp Pulse Resp BP Sys/Monzon Pulse Ox Last 24 Hr 97.9 F-99.4 F 67-77 16-18 128-158/66-86 92-96 Intake and Output 06/14/17 06/15/17 06/15/17 21:59 05:59 13:59 Intake Total 468 / 468 1140 / 1140 Output Total 780 / 780 Balance 468 / 468 360 / 360 Weight 244 lb Intake & Output: Intake & Output 06/14/17 06/15/17 06/15/17 21:59 05:59 13:59 Intake Total 468 / 468 1140 / 1140 Output Total 780 / 780 Balance 468 / 468 360 / 360 Weight 244 lb Intake: IV 108 / 108 Oral 360 / 360 1140 / 1140 Output: Void Amount 780 / 780 Other: # Voids 1 Exam: Constitutional; Afebrile, cooperative, alert, not in distress. Eyes- No icterus, , No periorbital swelling Ears- Ext ear normal, hearing normal to conversation. Neck- Midline trachea, supple Respiratory system: Air Entry equal decreased on right side, only right upper zone has breath sounds, no crackles or wheezing. CVS- Rate rhythm regular, S1,S2 heard, no gallop, no rub. 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 Medical - PN: Obj Da - Labs CBC & Chem 7: 06/15/17 03:55 06/15/17 03:55 Labs: Abnormal Lab Results 06/15/17 06/15/17 06/14/17 03:55 03:55 03:39 RBC 3.75 L Hgb 9.8 L Hct 29.8 L MCV 79.3 L MCH Gran % 82.0 H Lymph % (Auto) 9.2 L Gran # 8.4 H Lymph # (Auto) 0.9 L POC PT POC INR VBG Lactic Acid BUN 24 H Glucose 184 H 139 H Phosphorus 2.1 L Magnesium 1.3 L NT-Pro-B Natriuret Pep Total Protein 5.3 L 5.3 L Albumin 2.9 L 2.5 L Albumin/Globulin Ratio 0.9 L Triglycerides 158 H 198 H Urine Glucose (UA) 06/14/17 06/13/17 06/13/17 03:39 21:20 16:48 RBC 4.02 L Hgb 10.4 L Hct 31.8 L MCV 79.1 L MCH 25.8 L Gran % 79.9 H Lymph % (Auto) 10.3 L Gran # 8.4 H Lymph # (Auto) 1.1 L POC PT POC INR VBG Lactic Acid BUN Glucose Phosphorus Magnesium NT-Pro-B Natriuret Pep Total Protein 5.6 L Albumin Albumin/Globulin Ratio Triglycerides Urine Glucose (UA) >=500 A 06/13/17 06/13/17 06/13/17 15:25 14:23 14:23 RBC Hgb Hct MCV MCH Gran % Lymph % (Auto) Gran # Lymph # (Auto) POC PT 15.2 H POC INR 1.3 H VBG Lactic Acid 3.5 H BUN Glucose Phosphorus Magnesium NT-Pro-B Natriuret Pep 484.4 H Total Protein Albumin Albumin/Globulin Ratio Triglycerides Urine Glucose (UA) Meds: Medications Acetaminophen (Tylenol) 650 mg PO Q6HP PRN PRN Reason: PAIN/FEVER > 101 Hydrocodone Bitart/Acetaminophen ([place] 5/325mg) 1 tab PO Q4HP PRN PRN Reason: PAIN LEVEL 3-6 Last Admin: 06/15/17 03:19 Dose: 1 tab Albuterol/Ipratropium (Duoneb) 3 ml NEB Q6HRT [facility] Last Admin: 06/15/17 07:32 Dose: 3 ml Aspirin (Aspirin) 81 mg PO DAILY [facility] Last Admin: 06/15/17 09:49 Dose: 81 mg Atorvastatin Calcium (Lipitor) 40 mg PO [facility] Last Admin: 06/14/17 21:41 Dose: 40 mg Azithromycin (Zithromax) 250 mg PO DAILY [facility] Stop: 06/17/17 09:01 Last Admin: 06/15/17 09:50 Dose: 250 mg [facility] Last Admin: 06/15/17 09:51 Dose: 25 mg Ceftriaxone Sodium (Rocephin) 2 gm IV Q24H [facility] Last Admin: 06/15/17 09:47 Dose: 2 gm Clopidogrel Bisulfate (Plavix) 75 mg PO DAILY [facility] Last Admin: 06/15/17 09:50 Dose: 75 mg Dextrose (Dextrose 50%) 0 ml IV UD PRN PRN Reason: Hypoglycemia Diagnostic Test (Pha) (Accu-Chek) 1 each FS [facility] Last Admin: 06/15/17 07:00 Dose: 1 each Famotidine (Pepcid) 20 mg PO BID [facility] Last Admin: 06/15/17 09:51 Dose: 20 mg Fluoxetine HCl (Prozac) 20 mg PO DAILY [facility] Last Admin: 06/15/17 09:50 Dose: 20 mg Gabapentin (Neurontin) 600 mg PO Q8 [facility] Last Admin: 06/15/17 05:44 Dose: 600 mg Glucose (Insta-Glucose) 15 gm PO PRN PRN PRN Reason: Hypoglycemia Heparin Sodium (Porcine) (Heparin) 5,000 unit SQ Q12 [facility] Last Admin: 06/15/17 09:49 Dose: 5,000 unit Insulin Glargine (Lantus) 30 unit SQ [facility] Last Admin: 06/14/17 21:46 Dose: 30 unit Insulin Human Lispro (Humalog) 0 unit SQ [facility] PRN Reason: Protocol Last Admin: 06/15/17 07:01 Dose: Not Given Isosorbide Mononitrate (Imdur) 120 mg PO DAILY [facility] Last Admin: 06/15/17 09:53 Dose: 120 mg Losartan Potassium (Cozaar) 100 mg PO DAILY [facility] Last Admin: 06/15/17 09:52 Dose: 100 mg Naloxone HCl (Narcan) 0.1 mg IV Q2MIN PRN PRN Reason: Opiate Reversal Nitroglycerin (Nitrostat) 0.4 mg SL Q5M PRN PRN Reason: Chest Pain Omeprazole (Prilosec) 20 mg PO ACB [facility] Last Admin: 06/15/17 09:51 Dose: 20 mg Ondansetron HCl (Zofran) 4 mg IV Q4HP PRN PRN Reason: Nausea And Vomiting Pramipexole Dihydrochloride (Mirapex) 0.125 mg PO HS [facility] Last Admin: 06/14/17 21:40 Dose: 0.125 mg Spironolactone (Aldactone) 25 mg PO DAILY [facility] Last Admin: 06/15/17 09:52 Dose: 25 mg Trazodone HCl (Desyrel) 25 mg PO HSP PRN PRN Reason: Insomnia Last Admin: 06/14/17 21:41 Dose: 25 mg Medical - PN: A/P - Time Spent With Patient Total time spent is greater than 50% in coordination of care (as documented) at patient's floor/unit and/or counseling patient: - Narrative A/P Narrative: A/P Leucocytosis/ Weakness/ Pneumonia : Wbc count back to normal today, likely secondary to pna, iv rocephin and zithromax, follow cultures, neg growth so far. Pleural effusion, Exudative by LDH/ Protein Criteria : likely due to malignancy , pulm consulted, need for drainage? Abdominal Lymphadenopathy: Likely Non hodgkins as per radiology, try to obtain sample in AM DM: Hold oral meds, start on lantus and ssi while inpatient. Glucose improving now, on lantus 30, qhs, and humalong ssi, medium scale protocol. Hypotension/ Relative/ Dizziness/ Orthostatic symptoms: Due to dehydration, poor oral intake, hold amlodipine and isosorbide and lasix, continue coreg, losartan and Aldactone. IV fluids, bp stable so far, pt tolerating po diet well , Lactic acidosis: IV fluids, recheck lactate, BP is quite good in the hospital, HTN: continue coreg, aldactone, losartan and isosorbide,resume lasix today, continue to hold amlodpine for now resume once bp remains stable, CAD: S/P cabg, no chest pain, trop neg, resume asa, plavix, and beta kelton and nitrate. HLD on statin continue same Neuropathy: on Neurontin, continue same Depression: on fluoxetine, continue same DVT hep sq Diet Carb Consistent, Cardiac, Full code. Medical - PN: Qual - Stroke Symptom Onset Unknown: No - VTE Deep Vein Thrombosis/Pulmonary Embolism Present on Admission: No
[2017-06-15] MEDS: FUROSEMIDE 20 MG TABLET PO SCH ×2 (11:04→15:35)
--- NOTE | 2017-06-15 13:53 | General Surgery Consult Note ---
History of Present Illness Patient information: Note initiated : 06/15/17 at 1:51 pm Service Date, if different from initiated Date: [] Patient: Bishnu Bailey 62 y/o M admitted on 06/13/17 for Weakness. Chief Complaint: [] Reason for consult: other (Shortness of breath, general weakness and fatigue; weight loss; diffuse thoracic and intraperitoneal and retroperitoneal lymphadenopathy) History of present illness: 62-year-old male who was admitted on 13 June with complaint of diffuse weakness, shortness of breath, near syncope. He was noted to have hypotension with large left pleural effusion. He also has a history of significant weight loss. He had left thoracentesis. CT of the chest reveal large amount of lymphadenopathy with a large mass of the spleen and lymphadenopathy. Follow-up CT of the abdomen shows large splenic retroperitoneal para-aortic and pericaval nodes. There are also iliac nodes. Patient is felt to have lymphoma and I am consulted to do open tissue biopsy. Based on exam the least invasive procedure would be left axillary or left groin lymphadenectomy. This would get a large volume of tissue and would not delay his therapy for presumed lymphoma. Review of Systems - Constitutional anorexia, fatigue, malaise, night sweats, weakness, weight loss (Over 60 pound weight loss) - EENT Nose, mouth and throat: abnormal hearing, dizziness, headache(s), other ( Tinnitus) - Cardiovascular chest pain at rest, chest pain with activity, dyspnea, dyspnea on exertion, orthopnea, palpatations, rapid heart rate, syncope - Respiratory cough, dyspnea on exertion, chest congestion, pain with cough - Gastrointestinal abdominal pain, constipation, diarrhea, heartburn, nausea - Genitourinary urinary frequency, urinary hesitancy, urinary incontinence - Musculoskeletal abnormal gait (Left foot drop), arthralgias, back pain, joint swelling, limited range of motion, muscle cramps, muscle weakness, myalgias, radiating pain into limb, stiffness - Integumentary no changing lesions, no pruritus, no rash - Neurological abnormal gait, focal weakness, numbness, restless legs, weakness - Psychiatric anxiety, depression, suicidal ideation - Endocrine cold intolerance, fatigue, heat intolerance, palpitations - Hematologic/Lymphatic lymphadenopathy, no easy bleeding, no easy bruising - Allergic/Immunologic no tongue swelling, no throat swelling, no uticaria, no wheezing, no lip swelling Past History Past medical history: Diabetes mellitus type 2 insulin-dependent Hypertension Coronary artery disease status post three-vessel coronary artery bypass graft-- remote Major depression with suicidal ideation Chronic insomnia Cardiomyopathy History of congestive heart failure History of colon polyps Iron deficiency anemia Chronic obstructive sleep apnea CPAP dependent Atypical chest pain Past surgical history: Cholecystectomy Coronary artery bypass surgery L5-S1 discectomy Knee surgery Past family history: Multiple family members with hypertension Brother of complications of unknown carcinoma Past social history: Never smoker Denies drug use Drinks up to 2 alcoholic beverages per day Medications and Allergies Home Medications Medication Instructions Recorded Confirmed Type aspirin 81 mg tablet,delayed 81 mg PO QDAY 01/15/16 05/22/17 History release ibuprofen 200 mg capsule 800 mg PO ONCE 01/15/16 05/22/17 History melatonin 10 mg capsule 10 mg PO HS 01/15/16 05/22/17 History omeprazole 20 mg capsule,delayed 20 mg PO QDAY #90 cap 07/08/16 05/22/17 Rx release insulin syringe-needle U-100 1 mL See Dose Instructions .ROUTE 07/10/16 Rx 31 gauge x 10/22" .MEDSUPPLY #100 each blood sugar diagnostic strips 0 applic .ROUTE .MEDSUPPLY #100 07/29/16 05/22/17 Rx each MDD 4 times daily losartan 100 mg tablet 100 mg PO QDAY #90 tab 07/30/16 05/22/17 Rx insulin glargine 100 unit/mL 30 unit SUB-Q .nightly #10 ml 10/17/16 05/22/17 Rx subcutaneous solution metformin 1,000 mg tablet 1,000 mg PO BID #180 tab 10/17/16 05/22/17 Rx isosorbide mononitrate ER 60 mg 120 mg PO QAM #180 tab 10/21/16 05/22/17 Rx tablet,extended release 24 hr carvedilol 25 mg tablet 25 mg PO BID #180 tab 02/20/17 05/22/17 Rx clopidogrel 75 mg tablet 75 mg PO QDAY #90 tab 03/07/17 05/22/17 Rx spironolactone 25 mg tablet 25 mg PO QAM #90 tab 03/07/17 05/22/17 Rx blood-glucose meter See Dose Instructions .ROUTE 04/16/17 05/22/17 Rx .MEDSUPPLY #1 each Nitroglycerin [Nitrostat] 0.4 mg SL Q5M PRN #20 tab 05/05/17 05/22/17 Rx empagliflozin 25 mg tablet 25 mg PO QDAY #90 tab 05/05/17 05/22/17 Rx pramipexole 0.25 mg tablet 0.125 mg PO QHS #90 tab 05/08/17 05/22/17 Rx amlodipine 10 mg tablet 10 mg PO QDAY #90 tab 05/12/17 05/22/17 Rx atorvastatin 40 mg tablet 40 mg PO QDAY #90 tab 05/12/17 05/22/17 Rx fluoxetine 20 mg capsule 20 mg PO QDAY #90 cap 05/12/17 05/22/17 Rx furosemide 20 mg tablet 20 mg PO BID #180 tab 05/12/17 05/22/17 Rx gabapentin 600 mg tablet 600 mg PO Q8H #270 tab 05/22/17 05/22/17 Rx Blood Glucose Test strips See Dose Instructions .ROUTE 05/26/17 Rx .MEDSUPPLY #100 each NS MDD 4 times daily Allergies Allergy/AdvReac Type Severity Reaction Status Date / Time No Known Drug Allergies Allergy Verified 06/13/17 13:49 Exam Temp Pulse Resp BP Pulse Ox 98.7 F 67 16 128/60 94 06/15/17 11:25 06/15/17 13:27 06/15/17 13:27 06/15/17 11:25 06/15/17 08:00 - General physical appearance well developed, well nourished, no distress, chronically ill - Eyes PERRL, normal ocular movement - ENT normal pinna, normal nares, normal mucosa, no congestion, decreased hearing, poor halfway (Multiple cavitated broken teeth with gingivitis) - Head Head exam IM: Present: atraumatic, normal inspection, normocephalic - Neck no masses, no bruits, trachea midline, no lymphadectomy (No significant lymphadenopathy noted in neck), no venous distension - Cardiovascular Cardiovascular exam IM: Present: normal rate and rhythm, RRR, +S1, +S2. Absent : JVD - Respiratory normal expansion, normal respiratory effort, clear to percussion, clear to auscultation, other (Good breath sounds bilaterally except at left base and dependent on the left) - Abdomen Abdomen: Present: soft, non tender, bowel sounds, organomegaly (Splenomegaly with tenderness left upper quadrant) Hernia: Present: none - Genitourinary Present: normal penis with no external lesions - Integumentary Present: no rash, no growths, no abnormal pigmentation - Neurologic Present: normal coordination, normal sensation - Musculoskeletal Present: normal posture, other (Gait and stance not tested) - Psychiatric Present: oriented to time, oriented to person, oriented to place, speech is normal, memory intact - Additional Findings Palpable lymphadenopathy both axilla and both groins Results - Labs 06/15/17 03:55 06/15/17 03:55 Abnormal lab results 06/15/17 06/15/17 Range/Units 03:55 03:55 RBC 3.75 L (4.50-5.90) M/mcL Hgb 9.8 L (13.5-16.5) g/dL Hct 29.8 L (41.0-55.0) % MCV 79.3 L (80.0-100.0) fL Gran % 82.0 H (38.0-78.0) % Lymph % (Auto) 9.2 L (15.5-49.0) % Gran # 8.4 H (1.8-8.0) K/mcL Lymph # (Auto) 0.9 L (1.5-4.8) K/mcL Glucose 184 H (70-105) mg/dL Total Protein 5.3 L (5.9-8.4) gm/dL Albumin 2.9 L (3.2-5.2) gm/dL Triglycerides 158 H (<150) mg/dl Diabetes panel 06/15/17 Range/Units 03:55 Sodium 135 (133-145) mmol/L Potassium 4.3 (3.3-5.1) mmol/L Chloride 97 (96-108) mmol/L Carbon Dioxide 25 (22-30) mmol/L BUN 22 (8-23) mg/dl Creatinine 0.8 (0.7-1.2) mg/dl Glucose 184 H (70-105) mg/dL Calcium 10.1 (8.6-10.4) mg/dl AST 10 (0-37) U/l ALT 6 (0-40) U/l Alkaline Phosphatase 72 (39-117) U/L Total Protein 5.3 L (5.9-8.4) gm/dL Albumin 2.9 L (3.2-5.2) gm/dL Triglycerides 158 H (<150) mg/dl Calcium panel 06/15/17 Range/Units 03:55 Calcium 10.1 (8.6-10.4) mg/dl Phosphorus 2.9 (2.7-4.5) mg/dL Albumin 2.9 L (3.2-5.2) gm/dL Pituitary panel 06/15/17 Range/Units 03:55 Sodium 135 (133-145) mmol/L Potassium 4.3 (3.3-5.1) mmol/L Chloride 97 (96-108) mmol/L Carbon Dioxide 25 (22-30) mmol/L BUN 22 (8-23) mg/dl Creatinine 0.8 (0.7-1.2) mg/dl Glucose 184 H (70-105) mg/dL Calcium 10.1 (8.6-10.4) mg/dl Adrenal panel 06/15/17 Range/Units 03:55 Sodium 135 (133-145) mmol/L Potassium 4.3 (3.3-5.1) mmol/L Chloride 97 (96-108) mmol/L Carbon Dioxide 25 (22-30) mmol/L BUN 22 (8-23) mg/dl Creatinine 0.8 (0.7-1.2) mg/dl Glucose 184 H (70-105) mg/dL Calcium 10.1 (8.6-10.4) mg/dl Total Bilirubin 0.2 (0.0-1.0) mg/dL AST 10 (0-37) U/l ALT 6 (0-40) U/l Alkaline Phosphatase 72 (39-117) U/L Total Protein 5.3 L (5.9-8.4) gm/dL Albumin 2.9 L (3.2-5.2) gm/dL All other labs normal. Assessment and Plan (1) Diffuse lymphadenopathy Patient is counseled for lymphadenectomy of left axilla or left groin. It is tentatively scheduled for Friday. Status: Acute (2) Retroperitoneal lymphadenopathy Status: Acute (3) Atherosclerosis of autologous artery coronary artery bypass graft with unstable angina pectoris Status: Chronic (4) Cardiomyopathy, hypertensive Status: Chronic (5) Obstructive sleep apnea Status: Chronic (6) Uncontrolled type 2 diabetes mellitus with peripheral neuropathy Status: Chronic
--- NOTE | 2017-06-15 17:07 | Consultation ---
DATE OF CONSULTATION: 06/15/2017 REQUESTING: Erin Ricks MD CONSULTING: Krishna Peña MD PATIENT AGE: 62 HISTORY OF PRESENT ILLNESS: The patient is a 62-year-old male admitted on 06/13/2017 after presenting initially to [facility] care and found to have difficulties. Subsequently referred to the emergency room where a large left pleural effusion was found and he was considered a candidate for admission and further evaluation. The patient indicates that he has been becoming unwell in his view over approximately 3 weeks. He denies fevers, sweats or chills. Just became generally more weak and had dry nonproductive cough with more shortness of breath on exertion. He is a never smoker. He has done some chew for a long time. He denies unusual pets, plants, or birds in the home. He denies known exposure to tuberculosis or previous PPD skin testing. [place] at [employer] for 16 years. Subsequently, he relocated to [facility] and returned here in the last year. He denies other unusual travel or exposures. He denies significant gastroesophageal reflux disease. He does report siblings who have been diagnosed with lymphoma and renal cell carcinoma. Past cardiac history includes coronary artery bypass graft in 1999 with subsequent stents about 8 to 10 years ago but no interventions there since. He denies chest pain or having used his nitroglycerin, which he carries with him always. The patient indicates that he does have known sleep apnea. Bedtime around 7 or 8 in the evening. Wake time around 3:00 a.m. Feeling reasonably rested with his therapy. He did not bring his therapy to the hospital. He was encouraged to see if he can bring that to the hospital, although he is not thinking he would rely on his [id number] and his to bring the equipment in safely. The patient also indicates some restless leg symptoms. SYSTEMS REVIEW: Negative on questioning in a detailed fashion for additional focus of abnormality, with the exception of having had some intermittent left lower quadrant abdominal discomfort. He otherwise reports normal stooling and urinary habits. PHYSICAL EXAMINATION: GENERAL: The patient is a pleasant, little hard of hearing 62-year-old gentleman in no distress at rest. HEENT: Head is atraumatic and normocephalic. Eyes SAMANTHA, EOMI. Sclerae and conjunctiva clear. NECK: Supple. Carotids are +2 and symmetrical without bruits. LUNGS: Significantly decreased breath sounds and dullness in the left hemithorax lower 2/3 consistent with his radiographically demonstrated pleural effusion. Right lung more clear without concepcion wheeze, rales, or rhonchi. HEART: Regular at this time. S1, S2. There is no gallop, rub, jugular venous distention. Trace of pretibial dependent edema. ABDOMEN: Soft. Bowel sounds are present, decreased. There is no apparent mass or organomegaly, although CT abdomen does show an enlarged spleen. BONES, JOINTS, AND EXTREMITIES: Without acute changes. NEUROLOGIC: Nonfocal. He does suggest that he has some diabetic neuropathy. LABORATORY DATA: Collected thus far in his hospitalization includes microbiology of the nose negative for MRSA, pleural fluid negative for culture, and blood cultures no growth to date. CBCs have been performed on 2 occasions with normal white count, anemia with a hemoglobin of 10.4 and 9.8, platelet count 166,000 and 149,000. BUN today 22, creatinine 0.8. Troponin I negative on presentation. BNP elevated at 484 on presentation. Total protein 5.6 with a fluid protein of 3.7 as well as an LDH serum of 200 and LDH pleural fluid 146, suggesting that the fluid is exudative. The pH at 7.54 would suggest not a terribly inflammatory effusion with largely neutrophils at 45 percent, lymphocytes at 42 percent, and macrophages at 13 percent. Pleural fluid glucose 148, amylase 68. Radiographic evaluation has demonstrated the large pleural effusion on the left, small pleural effusion right, with some mediastinal lymphadenopathy as well as axillary lymphadenopathy. CT of the abdomen demonstrates a massive conglomerate of retroperitoneal adenopathy. IMPRESSION: A 62-year-old male with probable lymphoma versus diffuse infectious etiology. Agree with node biopsy to determine final answer hopefully. The patient should probably have his sleep therapy while in the hospital. The patient's pleural fluid seems to be rapidly accumulating and I would favor a couple of repeat thoracenteses while he gets through the biopsy procedure, as treatment of his primary problem may allow resolution of the pleural issue without need for a chest tube or more invasive procedure in the chest. I will discuss and follow with. Thank you for the opportunity to participate in the care of this very pleasant gentleman. DL:coco Job ID: [id number] Doc ID: [id number] Krishna Peña MD [facility]Henry
--- NOTE | 2017-06-15 17:34 | XRay Report ---
CLINICAL INFORMATION: Follow pleural effusion COMPARISON: Post thoracentesis upright chest x-ray from two days ago 06/13/2017. FINDINGS: Left pleural effusion has reaccumulated now moderate/large in size. There is marked compressive atelectasis of the left lower lobe and lingula. The lungs are clear. The heart is borderline enlarged, but unchanged. Mediastinum and pulmonary vessels are normal. IMPRESSION: Moderate/large left pleural effusion and increasing considerably since exam two days ago. There is compressive atelectasis in the overlying left lower lobe and lingula Interpreted and Authenticated by: Fritz Sood 06/15/17
[2017-06-15] MEDS: INSULIN GLARGINE, HUMAN 1 UNIT/0.01 ML SQ SCH (21:27)
[2017-06-15] MEDS: PRAMIPEXOLE 0.25 MG TABLET PO SCH (21:29)
[2017-06-15] MEDS: ATORVASTATIN 20 MG TABLET PO SCH (21:33)
[2017-06-15] MEDS: traZODone HCL 50 MG TABLET PO PRN (21:37)
[2017-06-16] MEDS: IPRATROPIUM/ALBUTEROL 3 ML AMPUL.NEB NEB SCH ×4 (01:59→19:17)
[2017-06-16 05:24] LABS: Basophils # (Auto) 0 K/mcL (0.0-0.3); Basophils % (Auto) 0 % (0.0-2.0); Eosinophils # (Auto) 0.2 K/mcL (0.0-0.7); Eosinophils % (Auto) 2.1 % (0.0-7.0); Granulocytes % (Auto) 81.4 % (38.0-78.0); Lymphocytes # (Auto) 0.8 K/mcL (1.5-4.8); Lymphocytes % (Auto) 8.5 % (15.5-49.0); Mean Cell Volume 78.5 fL (80.0-100.0); Mean Corpuscular HGB Conc 32.8 g/dL (31.0-36.0); Mean Corpuscular Hemoglobin 25.8 pg (26.0-34.0); Monocytes # (Auto) 0.8 K/mcL (0.1-0.9); Platelet Count 148 K/mcL (140-440); RBC 3.84 M/mcL (4.50-5.90); Red Cell Distribution Width 14.1 % (11.5-14.5)
[2017-06-16 05:53] LABS: ALT/SGPT 7 U/l (0-40); Albumin 2.6 gm/dL (3.2-5.2); Alkaline Phosphatase 68 U/L (39-117); Bilirubin,Direct < 0.2 mg/dL (0.0-0.3); Blood Urea Nitrogen 18 mg/dl (8-23); Gamma Glutamyl Transpeptidase 10 U/L (8-61); Magnesium 1.7 mg/dL (1.6-2.5); Uric Acid 4.8 mg/dL (2.5-8.0)
[2017-06-16] MEDS: GABAPENTIN 300 MG CAPSULE PO SCH ×3 (06:11→21:44)
[2017-06-16] MEDS: OMEPRAZOLE 20 MG CAPSULE PO SCH (06:47)
[2017-06-16] MEDS: HYDROcodone/APAP 5/325MG TABLET PO PRN ×3 (06:47→17:12)
[2017-06-16] MEDS: INSULIN LISPRO 1 UNIT/0.01 ML UNIT SQ SCH ×4 (07:28→21:46)
--- NOTE | 2017-06-16 07:39 | Pulmonology Progress Note ---
Subjective Patient information: Note initiated : 06/16/17 at 7:27 am Service Date, if different from initiated Date: [] Patient: Bishnu Bailey 62 y/o M admitted on 06/13/17 for Weakness. Chief Complaint: [Shortness of breath and weakness] The patient is a pleasant 62 yr old male. This morning he reports a restful night. He denies significant cough or sputum production. He is comfortable at rest. He is getting his incentive spirometer up to 1500 ml. Heart reg S1, S2 w/o edema Lungs unchanged with dull left lower one half of posterior lung field. Some dullness Rt base as well. No rhonchi or wheeze this AM. Imp: probable lymphoma. pleural effusion. Plan Bx in AM per Dr. Pena, I would re-tap as necessary. Hopefully understanding of primary Dx and Tx will prevent more aggressive approach to effusion. Fluid likely accumulating due to lymphatic obstruction and will continue until primary disease addressed. Pleural fluid loss a nutritional drain and I would tap as infrequently as patient's condition will allow. Krishna Peña MD Pulmonary Diseases Objective Vital Signs Temp Pulse Pulse Resp BP Pulse Ox 06/16/17 07:24 76 16 06/16/17 07:03 97.9 F 20 138/79 94 06/16/17 03:54 97.4 F 75 16 145/81 93 06/15/17 23:33 98.0 F 68 16 136/64 91 06/15/17 20:00 98.6 F 76 16 161/81 93 06/15/17 19:12 74 16 06/15/17 19:05 93 06/15/17 15:22 139/84 06/15/17 15:21 98.3 F 16 92 06/15/17 13:27 67 16 06/15/17 11:25 98.7 F 18 128/60 93 06/15/17 08:00 94 06/15/17 07:36 67 16 96 06/15/17 07:32 67 16 Intake and Output 06/15/17 06/16/17 06/16/17 21:59 05:59 13:59 Intake Total 800 / 800 750 / 750 Output Total 1200 / 1200 425 / 425 550 / 550 Balance -400 / -400 325 / 325 -550 / -550 Intake: Oral 800 / 800 750 / 750 Output: Void Amount 1200 / 1200 425 / 425 550 / 550 Other: Weight 248 lb Intake & Output: Intake & Output 06/15/17 06/16/17 06/16/17 21:59 05:59 13:59 Intake Total 800 / 800 750 / 750 Output Total 1200 / 1200 425 / 425 550 / 550 Balance -400 / -400 325 / 325 -550 / -550 Weight 248 lb Intake: Oral 800 / 800 750 / 750 Output: Void Amount 1200 / 1200 425 / 425 550 / 550 CBC and BMP: 06/16/17 03:50 06/16/17 03:50 ABG, PT/INR, D-dimer: PT/INR, D-dimer PT Cancelled 06/13/17 14:23 INR Cancelled 06/13/17 14:23 D-Dimer TNP 06/13/17 14:23 Abnormal lab findings: Abnormal Labs 06/13/17 06/13/17 06/13/17 14:23 14:23 15:25 RBC Hgb Hct MCV MCH Gran % Lymph % (Auto) Gran # Lymph # (Auto) POC PT 15.2 H POC INR 1.3 H VBG Lactic Acid 3.5 H BUN Glucose Phosphorus Magnesium NT-Pro-B Natriuret Pep 484.4 H Total Protein Albumin Albumin/Globulin Ratio Triglycerides Urine Glucose (UA) 06/13/17 06/13/17 06/14/17 16:48 21:20 03:39 RBC 4.02 L Hgb 10.4 L Hct 31.8 L MCV 79.1 L MCH 25.8 L Gran % 79.9 H Lymph % (Auto) 10.3 L Gran # 8.4 H Lymph # (Auto) 1.1 L POC PT POC INR VBG Lactic Acid BUN Glucose Phosphorus Magnesium NT-Pro-B Natriuret Pep Total Protein 5.6 L Albumin Albumin/Globulin Ratio Triglycerides Urine Glucose (UA) >=500 A 06/14/17 06/15/17 06/15/17 03:39 03:55 03:55 RBC 3.75 L Hgb 9.8 L Hct 29.8 L MCV 79.3 L MCH Gran % 82.0 H Lymph % (Auto) 9.2 L Gran # 8.4 H Lymph # (Auto) 0.9 L POC PT POC INR VBG Lactic Acid BUN 24 H Glucose 139 H 184 H Phosphorus 2.1 L Magnesium 1.3 L NT-Pro-B Natriuret Pep Total Protein 5.3 L 5.3 L Albumin 2.5 L 2.9 L Albumin/Globulin Ratio 0.9 L Triglycerides 198 H 158 H Urine Glucose (UA) 06/16/17 06/16/17 03:50 03:50 RBC 3.84 L Hgb 9.9 L Hct 30.1 L MCV 78.5 L MCH 25.8 L Gran % 81.4 H Lymph % (Auto) 8.5 L Gran # Lymph # (Auto) 0.8 L POC PT POC INR VBG Lactic Acid BUN Glucose Phosphorus Magnesium NT-Pro-B Natriuret Pep Total Protein 5.2 L Albumin 2.6 L Albumin/Globulin Ratio Triglycerides Urine Glucose (UA)
[2017-06-16] MEDS: cefTRIAXone 2 GM VIAL IV SCH (08:34)
[2017-06-16] MEDS: FUROSEMIDE 20 MG TABLET PO SCH ×2 (08:36→16:36)
[2017-06-16] MEDS: CARVEDILOL 12.5 MG TABLET PO SCH ×2 (08:36→16:36)
[2017-06-16] MEDS: SPIRONOLACTONE 25 MG TABLET PO SCH (08:36)
[2017-06-16] MEDS: AZITHROMYCIN 250 MG TABLET PO SCH (08:36)
[2017-06-16] MEDS: FLUoxetine HCL 20 MG CAPSULE PO SCH (08:36)
[2017-06-16] MEDS: ISOSORBIDE MONONITRATE 60 MG TAB.XL.24H PO SCH (08:37)
[2017-06-16] MEDS: FAMOTIDINE 20 MG TABLET PO SCH ×2 (08:37→21:44)
[2017-06-16] MEDS: LOSARTAN 50 MG TABLET PO SCH (08:37)
--- NOTE | 2017-06-16 08:50 | XRay Report ---
CLINICAL INFORMATION: Follow-up pleural effusion TECHNIQUE: AP upright portable chest x-ray COMPARISON: 06/15/2017, 06/13/2017 FINDINGS: Left pleural effusion and left basilar volume loss and infiltrate. Appearance is essentially unchanged since 06/15/2017. Right lung is negative. No focal infiltrate or mass. No evidence for congestive heart failure. IMPRESSION: 1. Left pleural effusion. Left basilar volume loss and infiltrate. 2. No interval change since 06/15/2017 Interpreted and Authenticated by: Fritz Huang 06/16/17
--- NOTE | 2017-06-16 09:42 | Internal Med Progress Note ---
Medical - PN: Subj Patient information: Note initiated : 06/16/17 at 9:39 am Service Date, if different from initiated Date: [] Patient: Bishnu Bailey a 62 y/o M admitted on 06/13/17 for Weakness. Chief Complaint: [] Interval history: Mr. Bailey is a 62 year old Male with h/o cad, dm, htn, s/p cabg, presents ot the ER with complaints of weakness fatigue, poor appertite and c ough x 4 weeks. The patient notes that he was doing ok approximately 4 weeks ago, the he noted a gradual decline in his condition, he was more tired, and fatigued, wanting to sleep all the time, no desire to eat or drink much. He noted he was very short of breath on minimal activity. this was accompained by a cough, which was dry. There were no aggravating or reliving factors to patients symptoms, he just progressively got worse. He notes he got dizzy maddi when he stood up or go up, is presently on jardiance. The patient symptoms got worse and therefore he was asked to be seen in the urgent care clinic In the clinic the patient was dizzy, orthostatic were positive and labs showed leucocytosis. He was therefor referred ot the ER for further evaluation In the ER his CXR Was noted to have new onset left sided pleural effusion. Given his elevated leucocytosis, and effusion, and cough, blood cx drawn and rocephin given. Pt also was noted to have elevated lactic acid. pt was sent to [facility] guided thoracocentesis and 2 L clear fluid removed, pt was presented to the hospital for admission. Jun 14 Patient seen examined, no acute overnight issues, tolerating po diet well, was sitting at the table and enjoying his breakfast He did not sleep well but beyond that did not have any other issues his labs show improved wbc, his CT scan done this AM read pending, Pleural fluid analysis shows exudative fluid by ldh and protein criteria, cytoloy pending, ph not suggestive of empyema, microbiology neg so far. Jun 15 Patient seen examined, feels a bit better, but still tired his X ray shows pleral effusion has recurred, HIs CT abdomen pelvis done today shows possible lymphoma Will get pulmonary advise with regards to management of recurrent pleural effusion maddi in light of malignancy diagnosis, need for pleurx cath vs repeated thoracocentesis. I discussed with Dr Cueva Oncologist consumer loan underwriter, who noted that a tissue sample would be beneficial, Will discuss with surgery vs radiology on the most feasible and efficient way to get adequate tissue sample. Cytology for pleural fluid was ordered. Plan of care reviewed with the patient, who is in agreement with same. Jun 16 Patient seen examined, no acute overnight events the patient still has some dry cough, and notes increased fatigue and shortness of breath appreciate pulmonary and surgery consult Plan to tap intermittently as needed. Will get a tap done today, in light of possible Sx tomorrow for excision biopsy of lymphnode. Patient otherwise has no complaints X ray chest reviewed, fluid has recurred. Pertinent ROS: Denies headache, dizziness Denies chest pain, palpitations worsening shortness of breath, cough present. Denies abdominal pain, nausea or vomiting. - Constitutional Vitals: Vital Signs Temp Pulse Resp BP Pulse Ox 97.9 F 76 16 138/79 94 06/16/17 07:03 06/16/17 07:24 06/16/17 07:24 06/16/17 07:03 06/16/17 07:27 Period Temp Pulse Resp BP Sys/Monzon Pulse Ox Last 24 Hr 97.4 F-98.7 F 67-76 16-20 128-161/60-84 91-94 Intake and Output 06/15/17 06/16/17 06/16/17 21:59 05:59 13:59 Intake Total 800 / 800 750 / 750 200 / 200 Output Total 1200 / 1200 425 / 425 550 / 550 Balance -400 / -400 325 / 325 -350 / -350 Weight 248 lb Intake & Output: Intake & Output 06/15/17 06/16/17 06/16/17 21:59 05:59 13:59 Intake Total 800 / 800 750 / 750 200 / 200 Output Total 1200 / 1200 425 / 425 550 / 550 Balance -400 / -400 325 / 325 -350 / -350 Weight 248 lb Intake: Oral 800 / 800 750 / 750 200 / 200 Output: Void Amount 1200 / 1200 425 / 425 550 / 550 Other: Meal Breakfast Percent of Meal Consumed 100% Exam: Constitutional; Afebrile, cooperative, alert, not in distress. Eyes- No icterus, , No periorbital swelling Ears- Ext ear normal, hearing normal to conversation. Neck- Midline trachea, supple Respiratory system: absent air entry on the left lung, base and mid lung, no crackles or wheezing noted elsewhere. CVS- Rate rhythm regular, S1,S2 heard, no gallop, no rub. Abdomen- Soft nontender abdomen, no organomegaly, no tenderness, no guarding or rigidity, MBA INTERN- AOOx3, moving all extremities, no gross focal deficit noted. Medical - PN: Obj Da - Labs CBC & Chem 7: 06/16/17 03:50 06/16/17 03:50 Labs: Abnormal Lab Results 06/16/17 06/16/17 06/15/17 03:50 03:50 03:55 RBC 3.84 L Hgb 9.9 L Hct 30.1 L MCV 78.5 L MCH 25.8 L Gran % 81.4 H Lymph % (Auto) 8.5 L Gran # Lymph # (Auto) 0.8 L POC PT POC INR VBG Lactic Acid BUN Glucose 184 H Phosphorus Magnesium NT-Pro-B Natriuret Pep Total Protein 5.2 L 5.3 L Albumin 2.6 L 2.9 L Albumin/Globulin Ratio Triglycerides 158 H Urine Glucose (UA) 06/15/17 06/14/17 06/14/17 03:55 03:39 03:39 RBC 3.75 L 4.02 L Hgb 9.8 L 10.4 L Hct 29.8 L 31.8 L MCV 79.3 L 79.1 L MCH 25.8 L Gran % 82.0 H 79.9 H Lymph % (Auto) 9.2 L 10.3 L Gran # 8.4 H 8.4 H Lymph # (Auto) 0.9 L 1.1 L POC PT POC INR VBG Lactic Acid BUN 24 H Glucose 139 H Phosphorus 2.1 L Magnesium 1.3 L NT-Pro-B Natriuret Pep Total Protein 5.3 L Albumin 2.5 L Albumin/Globulin Ratio 0.9 L Triglycerides 198 H Urine Glucose (UA) 06/13/17 06/13/17 06/13/17 21:20 16:48 15:25 RBC Hgb Hct MCV MCH Gran % Lymph % (Auto) Gran # Lymph # (Auto) POC PT 15.2 H POC INR 1.3 H VBG Lactic Acid BUN Glucose Phosphorus Magnesium NT-Pro-B Natriuret Pep Total Protein 5.6 L Albumin Albumin/Globulin Ratio Triglycerides Urine Glucose (UA) >=500 A 06/13/17 06/13/17 14:23 14:23 RBC Hgb Hct MCV MCH Gran % Lymph % (Auto) Gran # Lymph # (Auto) POC PT POC INR VBG Lactic Acid 3.5 H BUN Glucose Phosphorus Magnesium NT-Pro-B Natriuret Pep 484.4 H Total Protein Albumin Albumin/Globulin Ratio Triglycerides Urine Glucose (UA) Meds: Medications Acetaminophen (Tylenol) 650 mg PO Q6HP PRN PRN Reason: PAIN/FEVER > 101 Hydrocodone Bitart/Acetaminophen (Levan 5/325mg) 1 tab PO Q4HP PRN PRN Reason: PAIN LEVEL 3-6 Last Admin: 06/16/17 06:47 Dose: 1 tab Albuterol/Ipratropium (Duoneb) 3 ml NEB Q6HRT [facility] Last Admin: 06/16/17 07:00 Dose: 3 ml Aspirin (Aspirin) 81 mg PO DAILY [facility] Last Admin: 06/15/17 09:49 Dose: 81 mg Atorvastatin Calcium (Lipitor) 40 mg PO HS [facility] Last Admin: 06/15/17 21:33 Dose: 40 mg Azithromycin (Zithromax) 250 mg PO DAILY [facility] Stop: 06/17/17 09:01 Last Admin: 06/16/17 08:36 Dose: 250 mg Carvedilol (Coreg) 25 mg PO BIDCC [facility] Last Admin: 06/16/17 08:36 Dose: 25 mg Ceftriaxone Sodium (Rocephin) 2 gm IV Q24H [facility] Last Admin: 06/16/17 08:34 Dose: 2 gm Clopidogrel Bisulfate (Plavix) 75 mg PO DAILY [facility] Last Admin: 06/15/17 09:50 Dose: 75 mg Dextrose (Dextrose 50%) 0 ml IV UD PRN PRN Reason: Hypoglycemia Diagnostic Test (Pha) (Accu-Chek) 1 each FS ACHS [facility] Last Admin: 06/16/17 06:42 Dose: 1 each Famotidine (Pepcid) 20 mg PO BID [facility] Last Admin: 06/16/17 08:37 Dose: 20 mg Fluoxetine HCl (Prozac) 20 mg PO DAILY [facility] Last Admin: 06/16/17 08:36 Dose: 20 mg Furosemide (Lasix) 20 mg PO BIDD [facility] Last Admin: 06/16/17 08:36 Dose: 20 mg Gabapentin (Neurontin) 600 mg PO Q8 [facility] Last Admin: 06/16/17 06:11 Dose: 600 mg Glucose (Insta-Glucose) 15 gm PO PRN PRN PRN Reason: Hypoglycemia Heparin Sodium (Porcine) (Heparin) 5,000 unit SQ Q12 [facility] Last Admin: 06/15/17 21:28 Dose: 5,000 unit Insulin Glargine (Lantus) 30 unit SQ HS [facility] Last Admin: 06/15/17 21:27 Dose: 30 unit Insulin Human Lispro (Humalog) 0 unit SQ ACHS [facility] PRN Reason: Protocol Last Admin: 06/16/17 07:28 Dose: Not Given Isosorbide Mononitrate (Imdur) 120 mg PO DAILY [facility] Last Admin: 06/16/17 08:37 Dose: 120 mg Losartan Potassium (Cozaar) 100 mg PO DAILY [facility] Last Admin: 06/16/17 08:37 Dose: 100 mg Naloxone HCl (Narcan) 0.1 mg IV Q2MIN PRN PRN Reason: Opiate Reversal Nitroglycerin (Nitrostat) 0.4 mg SL Q5M PRN PRN Reason: Chest Pain Omeprazole (Prilosec) 20 mg PO ACB [facility] Last Admin: 06/16/17 06:47 Dose: 20 mg Ondansetron HCl (Zofran) 4 mg IV Q4HP PRN PRN Reason: Nausea And Vomiting Pramipexole Dihydrochloride (Mirapex) 0.125 mg PO HS [facility] Last Admin: 06/15/17 21:29 Dose: 0.125 mg Sodium Chloride (Saline Flush) 10 ml IV Q8 [facility] Spironolactone (Aldactone) 25 mg PO DAILY [facility] Last Admin: 06/16/17 08:36 Dose: 25 mg Trazodone HCl (Desyrel) 25 mg PO HSP PRN PRN Reason: Insomnia Last Admin: 06/15/17 21:37 Dose: 25 mg Medical - PN: A/P - Time Spent With Patient Total time spent is greater than 50% in coordination of care (as documented) at patient's floor/unit and/or counseling patient: - Narrative A/P Narrative: A/P Leucocytosis/ Weakness/ Pneumonia : Wbc count back to normal today, likely secondary to pna, iv rocephin and zithromax, follow cultures, neg growth so far. Total of 7 days of abx planned for now. Pleural effusion, Exudative by LDH/ Protein Criteria : likely due to malignancy , pulm consulted, given patients worsening shortness of breath, plan to tap again, also patient is scheduled for lymph node excision bx tomorrow. Abdominal Lymphadenopathy: Likely Non hodgkins as per radiology, surgery consulted, plan for excision biopsy in AM. DM: Hold oral meds, start on lantus and ssi while inpatient. Glucose control at goal, on lantus 30, qhs, and humalong ssi, medium scale protocol. Hypotension/ Relative/ Dizziness/ Orthostatic symptoms: resumed all home meds, monitor Lactic acidosis: IV fluids, recheck lactate, BP is quite good in the hospital, HTN: continue coreg, aldactone, losartan and isosorbide,resume lasix yesterday, and plan to resume amlodipine now that the bp is stable. CAD: S/P cabg, no chest pain, trop neg, resume asa, plavix, and beta kelton and nitrate. HLD on statin continue same Neuropathy: on Neurontin, continue same Depression: on fluoxetine, continue same DVT hep sq Diet Carb Consistent, Cardiac, Full code. Medical - PN: Qual - Stroke Symptom Onset Unknown: No - VTE Deep Vein Thrombosis/Pulmonary Embolism Present on Admission: No
[2017-06-16] MEDS: ASPIRIN 81 MG TAB.CHEW PO SCH (10:20)
[2017-06-16] MEDS: HEPARIN 5,000 UNIT/ML VIAL SQ SCH ×2 (10:21→21:46)
[2017-06-16] MEDS: CLOPIDOGREL 75 MG TABLET PO SCH (10:21)
[2017-06-16] MEDS ORDERED: LIDOCAINE 1% 20 ML VIAL SQ ONE (11:40)
--- NOTE | 2017-06-16 11:46 | XRay Report ---
CLINICAL INFORMATION: Status post left thoracentesis TECHNIQUE: AP portable chest x-ray COMPARISON: Previous thoracentesis chest x-ray dated 06/16/2017 FINDINGS: Status post left thoracentesis (1.4 L blood-tinged fluid removed). Significant interval decrease in left pleural effusion. There is left basilar parenchymal density consistent with infiltrate or volume loss. No postthoracentesis pneumothorax. IMPRESSION: 1. Status post left thoracentesis 2. No pneumothorax Interpreted and Authenticated by: Fritz Huang 06/16/17
--- NOTE | 2017-06-16 11:49 | Ultrasound Report ---
CLINICAL INFORMATION: Left pleural effusion TECHNIQUE: Informed consent was obtained. We discussed the procedure as well as potential risks and common locations including risk of hemorrhage and pneumothorax. Left pleural fluid collection was localized with ultrasound. 1% lidocaine administered subcutaneously and deep. A 6 Italian safe t centesis set was utilized. 1.4 L blood tinged fluid removed. COMPARISON: Previous ultrasound guided thoracentesis dated 06/13/2017. Previous chest x-ray dated 06/16/2017 FINDINGS: 1.4 L blood-tinged fluid removed. IMPRESSION: 1. Ultrasound guided left thoracentesis 2. 1.4 L pleural fluid removed. Interpreted and Authenticated by: Fritz Huang 06/16/17
[2017-06-16 12:44] LABS: Glucose,Pleural Fluid 136 mg/dL; LDH,Pleural Fluid 238 U/L
[2017-06-16 13:32] LABS: Total Protein,Body Fluid 3.2 gm/dL
[2017-06-16 13:55] LABS: Lymphocytes,Pleural Fluid 32 %; Neutrophils,Pleural Fluid 8 %; Other Cells,Pleural Cells 54 %
[2017-06-16 13:58] LABS: Appearance,Pleural Fluid CLOUDY; Color,Pleural Fluid PINK; Nucleated Cells,Pleural Fld 1825 /cumm; RBC,Pleural Fluid < 50000 /cumm
[2017-06-16] MEDS: 0.9 % SODIUM CHLORIDE 10 ML SYRINGE IV SCH ×2 (14:25→21:47)
--- NOTE | 2017-06-16 17:45 | General Surgery Progress Note ---
Subjective Patient reports: feels better, pain is less, tolerating a regular diet, afebrile Narrative: Note initiated : 06/16/17 at 5:44 pm Service Date, if different from initiated Date: [] Patient: Bishnu Bailey 62 y/o M admitted on 06/13/17 for Weakness/Pneumonia , CHF, Sepsis. Chief Complaint: [Patient is stable. I discussed with him the need to do node sampling of the left axilla tomorrow and he is agreeable. It is tentatively scheduled about 1 PM.] Objective Temp Pulse Resp BP Pulse Ox 97.3 F 69 16 109/61 93 06/16/17 15:49 06/16/17 14:40 06/16/17 14:40 06/16/17 15:49 06/16/17 15:49 - Additional Data Intake & Output - Last 24 hours: Intake & Output 06/14/17 06/15/17 06/16/17 06/17/17 05:59 05:59 05:59 05:59 Intake Total 1600 / 1600 1808 / 1808 1550 / 1550 1000 / 1000 Output Total 1100 / 1100 1280 / 1280 2625 / 2625 550 / 550 Balance 500 / 500 528 / 528 -1075 / -1075 450 / 450 Weight 242 lb 244 lb 248 lb - Labs 06/16/17 03:50 06/16/17 03:50 Diabetes panel 06/16/17 Range/Units 03:50 Sodium 138 (133-145) mmol/L Potassium 4.1 (3.3-5.1) mmol/L Chloride 99 (96-108) mmol/L Carbon Dioxide 26 (22-30) mmol/L BUN 18 (8-23) mg/dl Creatinine 0.7 (0.7-1.2) mg/dl Glucose 86 (70-105) mg/dL Calcium 9.7 (8.6-10.4) mg/dl AST 11 (0-37) U/l ALT 7 (0-40) U/l Alkaline Phosphatase 68 (39-117) U/L Total Protein 5.2 L (5.9-8.4) gm/dL Albumin 2.6 L (3.2-5.2) gm/dL Triglycerides 142 (<150) mg/dl Calcium panel 06/16/17 Range/Units 03:50 Calcium 9.7 (8.6-10.4) mg/dl Phosphorus 3.1 (2.7-4.5) mg/dL Albumin 2.6 L (3.2-5.2) gm/dL Pituitary panel 06/16/17 Range/Units 03:50 Sodium 138 (133-145) mmol/L Potassium 4.1 (3.3-5.1) mmol/L Chloride 99 (96-108) mmol/L Carbon Dioxide 26 (22-30) mmol/L BUN 18 (8-23) mg/dl Creatinine 0.7 (0.7-1.2) mg/dl Glucose 86 (70-105) mg/dL Calcium 9.7 (8.6-10.4) mg/dl Adrenal panel 06/16/17 Range/Units 03:50 Sodium 138 (133-145) mmol/L Potassium 4.1 (3.3-5.1) mmol/L Chloride 99 (96-108) mmol/L Carbon Dioxide 26 (22-30) mmol/L BUN 18 (8-23) mg/dl Creatinine 0.7 (0.7-1.2) mg/dl Glucose 86 (70-105) mg/dL Calcium 9.7 (8.6-10.4) mg/dl Total Bilirubin 0.2 (0.0-1.0) mg/dL AST 11 (0-37) U/l ALT 7 (0-40) U/l Alkaline Phosphatase 68 (39-117) U/L Total Protein 5.2 L (5.9-8.4) gm/dL Albumin 2.6 L (3.2-5.2) gm/dL Assessment and Plan (1) Diffuse lymphadenopathy Status: Acute Assessment and plan: Schedule for left axillary lymphadenectomy in the a.m. 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
[2017-06-16] MEDS: traZODone HCL 50 MG TABLET PO PRN (21:44)
[2017-06-16] MEDS: PRAMIPEXOLE 0.25 MG TABLET PO SCH (21:45)
[2017-06-16] MEDS: ATORVASTATIN 20 MG TABLET PO SCH (21:45)
[2017-06-16] MEDS: INSULIN GLARGINE, HUMAN 1 UNIT/0.01 ML SQ SCH (21:47)
[2017-06-17] MEDS: IPRATROPIUM/ALBUTEROL 3 ML AMPUL.NEB NEB SCH ×4 (01:30→19:07)
[2017-06-17 05:41] LABS: ALT/SGPT 8 U/l (0-40); Albumin 2.6 gm/dL (3.2-5.2); Alkaline Phosphatase 72 U/L (39-117); Bilirubin,Direct < 0.2 mg/dL (0.0-0.3); Blood Urea Nitrogen 17 mg/dl (8-23); Gamma Glutamyl Transpeptidase 11 U/L (8-61); Magnesium 1.6 mg/dL (1.6-2.5); Uric Acid 5.1 mg/dL (2.5-8.0)
[2017-06-17] MEDS: GABAPENTIN 300 MG CAPSULE PO SCH ×3 (05:53→21:37)
[2017-06-17] MEDS: 0.9 % SODIUM CHLORIDE 10 ML SYRINGE IV SCH ×3 (05:53→21:38)
[2017-06-17 05:56] LABS: Basophils # (Auto) 0 K/mcL (0.0-0.3); Basophils % (Auto) 0 % (0.0-2.0); Eosinophils # (Auto) 0.2 K/mcL (0.0-0.7); Eosinophils % (Auto) 2.3 % (0.0-7.0); Granulocytes % (Auto) 79.7 % (38.0-78.0); Lymphocytes # (Auto) 0.9 K/mcL (1.5-4.8); Lymphocytes % (Auto) 9.4 % (15.5-49.0); Mean Cell Volume 78.7 fL (80.0-100.0); Mean Corpuscular HGB Conc 32.7 g/dL (31.0-36.0); Mean Corpuscular Hemoglobin 25.7 pg (26.0-34.0); Monocytes # (Auto) 0.8 K/mcL (0.1-0.9); Monocytes % (Auto) 8.6 % (1.0-12.0); Platelet Count 142 K/mcL (140-440); RBC 3.81 M/mcL (4.50-5.90); Red Cell Distribution Width 14.1 % (11.5-14.5)
[2017-06-17] MEDS: OMEPRAZOLE 20 MG CAPSULE PO SCH (07:28)
[2017-06-17] MEDS: INSULIN LISPRO 1 UNIT/0.01 ML UNIT SQ SCH ×4 (07:28→21:23)
[2017-06-17] MEDS: SPIRONOLACTONE 25 MG TABLET PO SCH (08:32)
[2017-06-17] MEDS: ISOSORBIDE MONONITRATE 60 MG TAB.XL.24H PO SCH (08:32)
[2017-06-17] MEDS: FUROSEMIDE 20 MG TABLET PO SCH ×2 (08:33→17:09)
[2017-06-17] MEDS: LOSARTAN 50 MG TABLET PO SCH (08:33)
[2017-06-17] MEDS: FLUoxetine HCL 20 MG CAPSULE PO SCH (08:34)
[2017-06-17] MEDS: AZITHROMYCIN 250 MG TABLET PO SCH (08:34)
[2017-06-17] MEDS: cefTRIAXone 2 GM VIAL IV SCH (08:34)
[2017-06-17] MEDS: FAMOTIDINE 20 MG TABLET PO SCH ×2 (08:34→21:21)
[2017-06-17] MEDS: CARVEDILOL 12.5 MG TABLET PO SCH ×2 (08:35→17:09)
[2017-06-17] MEDS: ASPIRIN 81 MG TAB.CHEW PO SCH (08:35)
[2017-06-17] MEDS: CLOPIDOGREL 75 MG TABLET PO SCH (08:35)
[2017-06-17] MEDS: HEPARIN 5,000 UNIT/ML VIAL SQ SCH ×2 (08:35→21:23)
[2017-06-17] MEDS ORDERED: amLODIPine 10 MG TABLET PO SCH (09:00)
[2017-06-17] MEDS ORDERED: ONDANSETRON 4 MG/2 ML VIAL IV PRN ×2 (12:40→15:16)
[2017-06-17] MEDS ORDERED: FLUMAZENIL 0.1 MG/ML ML IV PRN (12:40)
[2017-06-17] MEDS ORDERED: PROMETHAZINE 25 MG/ML VIAL IV PRN (12:40)
[2017-06-17] MEDS ORDERED: MEPERIDINE 25 MG/ML SYRINGE IV PRN (12:40)
[2017-06-17] MEDS ORDERED: diphenhydrAMINE 50 MG/ML VIAL IV PRN (12:40)
[2017-06-17] MEDS ORDERED: BENZOCAINE/MENTHOL 1 LOZENGE PO PRN (12:40)
[2017-06-17] MEDS ORDERED: NALOXONE HCL 0.4 MG/ML VIAL IV PRN (12:40)
[2017-06-17] MEDS ORDERED: fentaNYL 100 MCG/2 ML VIAL IV PRN (12:40)
[2017-06-17] MEDS ORDERED: IPRATROPIUM/ALBUTEROL 3 ML AMPUL.NEB NEB PRN (12:40)
[2017-06-17] MEDS ORDERED: LACTATED RINGERS 250 ML IV PRN (12:40)
[2017-06-17] MEDS ORDERED: LACTATED RINGERS 1,000 ML IV SCH (12:45)
[2017-06-17] MEDS ORDERED: ePHEDrine 50 MG/ML AMPUL IV ONE (12:55)
[2017-06-17] MEDS ORDERED: MIDAZOLAM 5 MG/5 ML VIAL IV ONE (12:55)
[2017-06-17] MEDS ORDERED: LIDOCAINE HCL/PF 100 MG/5 ML SYRINGE IV ONE (12:55)
[2017-06-17] MEDS ORDERED: fentaNYL 100 MCG/2 ML VIAL IV ONE (12:55)
[2017-06-17] MEDS ORDERED: DEXAMETHASONE 10 MG/ML VIAL IV ONE (12:55)
[2017-06-17] MEDS ORDERED: PROPOFOL 200 MG/20 ML VIAL IV ONE (12:55)
[2017-06-17] MEDS ORDERED: ONDANSETRON 4 MG/2 ML VIAL IV ONE (12:55)
--- NOTE | 2017-06-17 13:55 | Brief Operative Note ---
Date of procedure: 06/17/17 Pre-op diagnosis: diffuse lymphadenopathy Post-op diagnosis: other (diffuse lymphadenopathy) Procedure: left axillary lymphadenectomy Grafts/Implants: No Anesthesia: GLMA Findings: multiple large nodes of left axilla Complications: none Surgeon: Anish Pena Estimated blood loss (cc): 5 Specimens Removed/Pathology: other (multiple nodes from left axilla) Condition: stable Disposition: PACU
[2017-06-17] MEDS ORDERED: DEXTROSE 50% 50 ML VIAL IV PRN (15:16)
[2017-06-17] MEDS ORDERED: DEXTROSE 31 GM ORAL.SUSP PO PRN (15:16)
[2017-06-17] MEDS ORDERED: ACETAMINOPHEN 325 MG TABLET PO PRN (15:16)
[2017-06-17] MEDS ORDERED: PRAMIPEXOLE 0.25 MG TABLET PO SCH (21:00)
[2017-06-17] MEDS ORDERED: ATORVASTATIN 20 MG TABLET PO SCH (21:00)
[2017-06-17] MEDS ORDERED: traZODone HCL 50 MG TABLET PO PRN (21:00)
[2017-06-17] MEDS ORDERED: INSULIN GLARGINE, HUMAN 1 UNIT/0.01 ML SQ SCH (21:00)
[2017-06-17] MEDS: HYDROcodone/APAP 5/325MG TABLET PO PRN (21:21)
--- NOTE | 2017-06-17 22:28 | Internal Med Progress Note ---
Medical - PN: Subj Patient information: Note initiated : 06/17/17 at 10:24 pm Service Date, if different from initiated Date: [] Patient: Bishnu Bailey a 62 y/o M admitted on 06/13/17 for Weakness/Pneumonia , CHF, Sepsis. Chief Complaint: [] Interval history: Mr. Bailey is a 62 year old Male with h/o cad, dm, htn, s/p cabg, presents ot the ER with complaints of weakness fatigue, poor appertite and c ough x 4 weeks. The patient notes that he was doing ok approximately 4 weeks ago, the he noted a gradual decline in his condition, he was more tired, and fatigued, wanting to sleep all the time, no desire to eat or drink much. He noted he was very short of breath on minimal activity. this was accompained by a cough, which was dry. There were no aggravating or reliving factors to patients symptoms, he just progressively got worse. He notes he got dizzy maddi when he stood up or go up, is presently on jardiance. The patient symptoms got worse and therefore he was asked to be seen in the urgent care clinic In the clinic the patient was dizzy, orthostatic were positive and labs showed leucocytosis. He was therefor referred ot the ER for further evaluation In the ER his CXR Was noted to have new onset left sided pleural effusion. Given his elevated leucocytosis, and effusion, and cough, blood cx drawn and rocephin given. Pt also was noted to have elevated lactic acid. pt was sent to [facility] guided thoracocentesis and 2 L clear fluid removed, pt was presented to the hospital for admission. Jun 14 Patient seen examined, no acute overnight issues, tolerating po diet well, was sitting at the table and enjoying his breakfast He did not sleep well but beyond that did not have any other issues his labs show improved wbc, his CT scan done this AM read pending, Pleural fluid analysis shows exudative fluid by ldh and protein criteria, cytoloy pending, ph not suggestive of empyema, microbiology neg so far. Jun 15 Patient seen examined, feels a bit better, but still tired his X ray shows pleral effusion has recurred, HIs CT abdomen pelvis done today shows possible lymphoma Will get pulmonary advise with regards to management of recurrent pleural effusion maddi in light of malignancy diagnosis, need for pleurx cath vs repeated thoracocentesis. I discussed with Dr Cueva Oncologist housing relocation, who noted that a tissue sample would be beneficial, Will discuss with surgery vs radiology on the most feasible and efficient way to get adequate tissue sample. Cytology for pleural fluid was ordered. Plan of care reviewed with the patient, who is in agreement with same. Jun 16 Patient seen examined, no acute overnight events the patient still has some dry cough, and notes increased fatigue and shortness of breath appreciate pulmonary and surgery consult Thoracentesis # 2 with removal of 1.4 L serosanguineous fluid (L-side) Jun 17: S/P diagnostic left axillary lymphadenopathy. D/w pathology. Flow cytometry requested for possible lymphoma. If stable can discharge home in am. FU with PCP Efren Pertinent ROS: Denies headache, dizziness Denies chest pain, palpitations worsening shortness of breath, cough present. Denies abdominal pain, nausea or vomiting. - Constitutional Vitals: Vital Signs Temp Pulse Resp BP Pulse Ox 97.5 F 87 18 137/68 92 06/17/17 20:00 06/17/17 20:00 06/17/17 20:00 06/17/17 20:00 06/17/17 20:00 Period Temp Pulse Resp BP Sys/Monzon Pulse Ox Last 24 Hr 97.5 F-99.6 F 67-87 14-20 93-157/48-80 89-97 Intake and Output 06/17/17 06/17/17 06/18/17 13:59 21:59 05:59 Intake Total 1200 / 1200 200 / 200 Output Total 200 / 200 700 / 700 Balance 1000 / 1000 -500 / -500 Weight 247 lb Patient Weight 06/18/17 05:59 Weight 247 lb Intake & Output: Intake & Output 06/17/17 06/17/17 06/18/17 13:59 21:59 05:59 Intake Total 1200 / 1200 200 / 200 Output Total 200 / 200 700 / 700 Balance 1000 / 1000 -500 / -500 Weight 247 lb Intake: IV - Manual Only 200 / 200 Other 1200 / 1200 Output: Void Amount 200 / 200 600 / 600 Estimated Blood Loss 100 / 100 Medical - PN: Obj Da - Labs CBC & Chem 7: 06/17/17 03:40 06/17/17 03:40 Labs: Abnormal Lab Results 06/17/17 06/17/1706/16/18 03:40 03:40 10:21 RBC 3.81 L Hgb 9.8 L Hct 30.0 L MCV 78.7 L MCH 25.7 L Gran % 79.7 H Lymph % (Auto) 9.4 L Gran # Lymph # (Auto) 0.9 L POC PT 16.4 H POC INR 1.4 H Glucose Total Protein 5.2 L Albumin 2.6 L Triglycerides 06/16/17 06/16/17 06/15/17 03:50 03:50 03:55 RBC 3.84 L Hgb 9.9 L Hct 30.1 L MCV 78.5 L MCH 25.8 L Gran % 81.4 H Lymph % (Auto) 8.5 L Gran # Lymph # (Auto) 0.8 L POC PT POC INR Glucose 184 H Total Protein 5.2 L 5.3 L Albumin 2.6 L 2.9 L Triglycerides 158 H 06/15/17 03:55 RBC 3.75 L Hgb 9.8 L Hct 29.8 L MCV 79.3 L MCH Gran % 82.0 H Lymph % (Auto) 9.2 L Gran # 8.4 H Lymph # (Auto) 0.9 L POC PT POC INR Glucose Total Protein Albumin Triglycerides Meds: Medications Acetaminophen (Tylenol) 650 mg PO Q6HP PRN PRN Reason: PAIN/FEVER > 101 Hydrocodone Bitart/Acetaminophen ([place] 5/325mg) 1 tab PO Q4HP PRN PRN Reason: PAIN LEVEL 3-6 Last Admin: 06/17/17 21:21 Dose: 1 tab Albuterol/Ipratropium (Duoneb) 3 ml NEB Q6HRT [facility] Last Admin: 06/17/17 19:07 Dose: 3 ml Amlodipine Besylate (Norvasc) 10 mg PO QDAY [facility] Aspirin (Aspirin) 81 mg PO DAILY [facility] Atorvastatin Calcium (Lipitor) 40 mg PO HS [facility] Last Admin: 06/17/17 21:21 Dose: 40 mg Carvedilol (Coreg) 25 mg PO BIDCC [facility] Last Admin: 06/17/17 17:09 Dose: 25 mg Ceftriaxone Sodium (Rocephin) 2 gm IV Q24H [facility] Clopidogrel Bisulfate (Plavix) 75 mg PO DAILY [facility] Dextrose (Dextrose 50%) 0 ml IV UD PRN PRN Reason: Hypoglycemia Diagnostic Test (Pha) (Accu-Chek) 1 each FS ACHS [facility] Last Admin: 06/17/17 21:03 Dose: 1 each Famotidine (Pepcid) 20 mg PO BID [facility] Last Admin: 06/17/17 21:21 Dose: 20 mg Fluoxetine HCl (Prozac) 20 mg PO DAILY [facility] Furosemide (Lasix) 20 mg PO BIDD [facility] Last Admin: 06/17/17 17:09 Dose: 20 mg Gabapentin (Neurontin) 600 mg PO Q8 [facility] Last Admin: 06/17/17 21:37 Dose: 600 mg Glucose (Insta-Glucose) 15 gm PO PRN PRN PRN Reason: Hypoglycemia Heparin Sodium (Porcine) (Heparin) 5,000 unit SQ Q12 [facility] Last Admin: 06/17/17 21:23 Dose: 5,000 unit Insulin Glargine (Lantus) 30 unit SQ HS [facility] Last Admin: 06/17/17 21:23 Dose: 30 unit Insulin Human Lispro (Humalog) 0 unit SQ [facility] PRN Reason: Protocol Last Admin: 06/17/17 21:23 Dose: 6 unit Isosorbide Mononitrate (Imdur) 120 mg PO DAILY [facility] Losartan Potassium (Cozaar) 100 mg PO DAILY [facility] Omeprazole (Prilosec) 20 mg PO ACB [facility] Ondansetron HCl (Zofran) 4 mg IV Q4HP PRN PRN Reason: Nausea And Vomiting Pramipexole Dihydrochloride (Mirapex) 0.125 mg PO HS [facility] Last Admin: 06/17/17 21:21 Dose: 0.125 mg Sodium Chloride (Saline Flush) 10 ml IV Q8 [facility] Last Admin: 06/17/17 21:38 Dose: 10 ml Spironolactone (Aldactone) 25 mg PO DAILY [facility] Trazodone HCl (Desyrel) 25 mg PO HSP PRN PRN Reason: Insomnia Last Admin: 06/17/17 21:21 Dose: 25 mg Medical - PN: A/P - Time Spent With Patient Total time spent is greater than 50% in coordination of care (as documented) at patient's floor/unit and/or counseling patient: - Narrative A/P Narrative: A/P Leucocytosis/ Weakness/ Pneumonia : Wbc count back to normal today, likely secondary to pna, iv rocephin and zithromax, follow cultures, neg growth so far. Total of 7 days of abx planned for now. Pleural effusion, Exudative by LDH/ Protein Criteria : likely due to malignancy , pulm consulted, given patients worsening shortness of breath, plan to tap again, also patient is scheduled for lymph node excision bx tomorrow. Abdominal Lymphadenopathy: Likely Non hodgkins as per radiology, surgery consulted, plan for excision biopsy in AM. DM: Hold oral meds, start on lantus and ssi while inpatient. Glucose control at goal, on lantus 30, qhs, and humalong ssi, medium scale protocol. Hypotension/ Relative/ Dizziness/ Orthostatic symptoms: resumed all home meds, monitor Lactic acidosis: IV fluids, recheck lactate, BP is quite good in the hospital, HTN: continue coreg, aldactone, losartan and isosorbide,resume lasix yesterday, and plan to resume amlodipine now that the bp is stable. CAD: S/P cabg, no chest pain, trop neg, resume asa, plavix, and beta kelton and nitrate. HLD on statin continue same Neuropathy: on Neurontin, continue same Depression: on fluoxetine, continue same DVT hep sq Diet Carb Consistent, Cardiac, Full code. Medical - PN: Qual - Stroke Symptom Onset Unknown: No - VTE Deep Vein Thrombosis/Pulmonary Embolism Present on Admission: No Objective Vital Signs Temp Pulse Pulse Resp BP Pulse Ox 06/17/17 20:00 97.5 F 87 18 137/68 92 06/17/17 19:53 92 06/17/17 19:30 92 06/17/17 19:16 69 16 06/17/17 16:28 70 133/73 92 06/17/17 16:13 68 141/75 92 06/17/17 15:58 70 141/73 91 06/17/17 15:43 69 137/72 91 06/17/17 15:28 68 131/72 91 06/17/17 15:13 67 131/72 91 06/17/17 14:58 67 129/69 91 06/17/17 14:33 98.2 F 70 17 123/62 92 06/17/17 14:18 70 15 122/64 97 06/17/17 14:03 70 15 101/52 94 06/17/17 13:48 99.6 F H 75 14 93/48 94 06/17/17 07:19 91 06/17/17 07:14 76 16 06/17/17 06:50 97.5 F 20 143/77 89 L 06/17/17 04:00 98.3 F 70 20 145/74 90 06/17/17 00:00 97.6 F 69 20 157/80 93 - Intake & Output Intake & Output: Intake & Output 06/17/17 06/17/17 06/18/17 13:59 21:59 05:59 Intake Total 1200 / 1200 200 / 200 Output Total 200 / 200 700 / 700 Balance 1000 / 1000 -500 / -500 Weight 247 lb Intake: IV - Manual Only 200 / 200 Other 1200 / 1200 Output: Void Amount 200 / 200 600 / 600 Estimated Blood Loss 100 / 100 - Physical Examination General: Appears Well HEENT: PERRL Cardiac: Reg Rate and Rhythm Lungs: Normal Exam Neuro: Cranial Nerve 2-12 Intact Abdomen: Soft, Unremarkable Musculoskeletal: Normal Range of Motion Extremities cardiology: No Edema - Labs and Meds Cardiac Enzymes 06/17/17 Range/Units 03:40 AST 12 (0-37) U/l Lactate Dehydrogenase 197 (94-250) U/L Lipids 06/17/17 Range/Units 03:40 Triglycerides 147 (<150) mg/dl CBC 06/17/17 Range/Units 03:40 WBC 9.2 (4.5-11.0) K/mcL RBC 3.81 L (4.50-5.90) M/mcL Hgb 9.8 L (13.5-16.5) g/dL Hct 30.0 L (41.0-55.0) % Plt Count 142 (140-440) K/mcL Lymph # (Auto) 0.9 L (1.5-4.8) K/mcL [place] # (Auto) 0.8 (0.1-0.9) K/mcL Eos # (Auto) 0.2 (0.0-0.7) K/mcL Baso # (Auto) 0 (0.0-0.3) K/mcL Comprehensive Metabolic Panel 06/17/17 Range/Units 03:40 Sodium 135 (133-145) mmol/L Potassium 4.0 (3.3-5.1) mmol/L Chloride 98 (96-108) mmol/L Carbon Dioxide 25 (22-30) mmol/L BUN 17 (8-23) mg/dl Creatinine 0.7 (0.7-1.2) mg/dl Glucose 96 (70-105) mg/dL Calcium 9.5 (8.6-10.4) mg/dl Direct Bilirubin < 0.2 (0.0-0.3) mg/dL AST 12 (0-37) U/l ALT 8 (0-40) U/l Alkaline Phosphatase 72 (39-117) U/L Total Protein 5.2 L (5.9-8.4) gm/dL Albumin 2.6 L (3.2-5.2) gm/dL Current Medications Generic Name Dose Route Start Last Admin Trade Name Freq PRN Reason Stop Dose Admin Acetaminophen 650 mg 06/17/17 15:16 Tylenol PO Q6HP PRN PAIN/FEVER > 101 Hydrocodone Bitart/Acetaminophen 1 tab 06/17/17 15:16 06/17/17 21:21 [place] 5/325mg PO 1 tab Q4HP PRN Administration PAIN LEVEL 3-6 Albuterol/Ipratropium 3 ml 06/17/17 19:00 06/17/17 19:07 Duoneb NEB 3 ml Q6HRT [facility] Administration Amlodipine Besylate 10 mg 06/18/17 09:00 Norvasc PO QDAY [facility] Aspirin 81 mg 06/18/17 09:00 Aspirin PO DAILY [facility] Atorvastatin Calcium 40 mg 06/17/17 21:00 06/17/17 21:21 Lipitor PO 40 mg HS [facility] Administration Carvedilol 25 mg 06/17/17 17:30 06/17/17 17:09 Coreg PO 25 mg BIDCC [facility] Administration Ceftriaxone Sodium 2 gm 06/18/17 09:00 Rocephin IV Q24H [facility] Clopidogrel Bisulfate 75 mg 06/18/17 09:00 Plavix PO DAILY [facility] Dextrose 0 ml 06/17/17 15:16 Dextrose 50% IV UD PRN Hypoglycemia Diagnostic Test (Pha) 1 each 06/17/17 17:00 06/17/17 21:03 Accu-Chek FS 1 each ACHS [facility] Administration Famotidine 20 mg 06/17/17 21:00 06/17/17 21:21 Pepcid PO 20 mg BID [facility] Administration Fluoxetine HCl 20 mg 06/18/17 09:00 Prozac PO DAILY [facility] Furosemide 20 mg 06/17/17 16:00 06/17/17 17:09 Lasix PO 20 mg BIDD [facility] Administration Gabapentin 600 mg 06/17/17 22:00 06/17/17 21:37 Neurontin PO 600 mg Q8 [facility] Administration Glucose 15 gm 06/17/17 15:16 Insta-Glucose PO PRN PRN Hypoglycemia Heparin Sodium (Porcine) 5,000 unit 06/17/17 21:00 06/17/17 21:23 Heparin SQ 5,000 unit Q12 [facility] Administration Insulin Glargine 30 unit 06/17/17 21:00 06/17/17 21:23 Lantus SQ 30 unit HS [facility] Administration Insulin Human Lispro 0 unit 06/17/17 17:00 06/17/17 21:23 Humalog SQ 6 unit ACHS [facility] Administration Protocol Isosorbide Mononitrate 120 mg 06/18/17 09:00 Imdur PO DAILY [facility] Losartan Potassium 100 mg 06/18/17 09:00 Cozaar PO DAILY [facility] Omeprazole 20 mg 06/18/17 07:30 Prilosec PO ACB [facility] Ondansetron HCl 4 mg 06/17/17 15:16 Zofran IV Q4HP PRN Nausea And Vomiting Pramipexole Dihydrochloride 0.125 mg 06/17/17 21:00 06/17/17 21:21 Mirapex PO 0.125 mg HS [facility] Administration Sodium Chloride 10 ml 06/17/17 22:00 06/17/17 21:38 Saline Flush IV 10 ml Q8 [facility] Administration Spironolactone 25 mg 06/18/17 09:00 Aldactone PO DAILY [facility] Trazodone HCl 25 mg 06/17/17 21:00 06/17/17 21:21 Desyrel PO 25 mg HSP PRN Administration Insomnia Intake and Output 06/17/17 06/17/17 06/18/17 13:59 21:59 05:59 Intake Total 1200 / 1200 200 / 200 Output Total 200 / 200 700 / 700 Balance 1000 / 1000 -500 / -500 Intake: IV - Manual Only 200 / 200 Other 1200 / 1200 Output: Void Amount 200 / 200 600 / 600 Estimated Blood Loss 100 / 100 Other: Weight 247 lb Patient Weight 06/18/17 05:59 Weight 247 lb
--- NOTE | 2017-06-17 22:43 | Internal Med Progress Note ---
Medical - PN: Subj Patient information: Note initiated : 06/17/17 at 10:40 pm Service Date, if different from initiated Date: [] Patient: Bishnu Bailey a 62 y/o M admitted on 06/13/17 for Weakness/Pneumonia , CHF, Sepsis. Interval history: Mr. Bailey is a 62 year old Male with h/o cad, dm, htn, s/p cabg, presents ot the ER with complaints of weakness fatigue, poor appertite and c ough x 4 weeks. The patient notes that he was doing ok approximately 4 weeks ago, the he noted a gradual decline in his condition, he was more tired, and fatigued, wanting to sleep all the time, no desire to eat or drink much. He noted he was very short of breath on minimal activity. this was accompained by a cough, which was dry. There were no aggravating or reliving factors to patients symptoms, he just progressively got worse. He notes he got dizzy maddi when he stood up or go up, is presently on jardiance. The patient symptoms got worse and therefore he was asked to be seen in the urgent care clinic In the clinic the patient was dizzy, orthostatic were positive and labs showed leucocytosis. He was therefor referred ot the ER for further evaluation In the ER his CXR Was noted to have new onset left sided pleural effusion. Given his elevated leucocytosis, and effusion, and cough, blood cx drawn and rocephin given. Pt also was noted to have elevated lactic acid. pt was sent to [facility] guided thoracocentesis and 2 L clear fluid removed, pt was presented to the hospital for admission. Jun 14 Patient seen examined, no acute overnight issues, tolerating po diet well, was sitting at the table and enjoying his breakfast He did not sleep well but beyond that did not have any other issues his labs show improved wbc, his CT scan done this AM read pending, Pleural fluid analysis shows exudative fluid by ldh and protein criteria, cytoloy pending, ph not suggestive of empyema, microbiology neg so far. Jun 15 Patient seen examined, feels a bit better, but still tired his X ray shows pleral effusion has recurred, HIs CT abdomen pelvis done today shows possible lymphoma Will get pulmonary advise with regards to management of recurrent pleural effusion maddi in light of malignancy diagnosis, need for pleurx cath vs repeated thoracocentesis. I discussed with Dr Cueva Oncologist instrumentation and control technician, who noted that a tissue sample would be beneficial, Will discuss with surgery vs radiology on the most feasible and efficient way to get adequate tissue sample. Cytology for pleural fluid was ordered. Plan of care reviewed with the patient, who is in agreement with same. Jun 16 Patient seen examined, no acute overnight events the patient still has some dry cough, and notes increased fatigue and shortness of breath appreciate pulmonary and surgery consult Thoracentesis # 2 for 1.4 L Jun 17: Left axillary lymphadenopathy. D/w pathology to have flow cytometry done. Tentative d/c home in am and FU with PCP Will check echocardiogram Pertinent ROS: Denies headache, dizziness Denies chest pain, palpitations worsening shortness of breath, cough present. Denies abdominal pain, nausea or vomiting. - Constitutional Vitals: Vital Signs Temp Pulse Resp BP Pulse Ox 97.5 F 87 18 137/68 92 06/17/17 20:00 06/17/17 20:00 06/17/17 20:00 06/17/17 20:00 06/17/17 20:00 Period Temp Pulse Resp BP Sys/Monzon Pulse Ox Last 24 Hr 97.5 F-99.6 F 67-87 14-20 93-157/48-80 89-97 Intake and Output 06/17/17 06/17/17 06/18/17 13:59 21:59 05:59 Intake Total 1200 / 1200 200 / 200 Output Total 200 / 200 700 / 700 Balance 1000 / 1000 -500 / -500 Weight 247 lb Patient Weight 06/18/17 05:59 Weight 247 lb Intake & Output: Intake & Output 06/17/17 06/17/17 06/18/17 13:59 21:59 05:59 Intake Total 1200 / 1200 200 / 200 Output Total 200 / 200 700 / 700 Balance 1000 / 1000 -500 / -500 Weight 247 lb Intake: IV - Manual Only 200 / 200 Other 1200 / 1200 Output: Void Amount 200 / 200 600 / 600 Estimated Blood Loss 100 / 100 General appearance: average body habitus, no acute distress - Respiratory Respiratory exam: Present: normal respiratory exam - Cardiovascular Cardiovascular exam: Present: normal rate and rhythm - GI/Abdominal GI/Abdominal exam: Present: normal bowel sounds - Neurological Exam Neurological exam: Present: alert, oriented X3 Medical - PN: Obj Da - Labs CBC & Chem 7: 06/17/17 03:40 06/17/17 03:40 Labs: Abnormal Lab Results 06/17/17 06/17/17 06/16/17 03:40 03:40 10:21 RBC 3.81 L Hgb 9.8 L Hct 30.0 L MCV 78.7 L MCH 25.7 L Gran % 79.7 H Lymph % (Auto) 9.4 L Gran # Lymph # (Auto) 0.9 L POC PT 16.4 H POC INR 1.4 H Glucose Total Protein 5.2 L Albumin 2.6 L Triglycerides 06/16/17 06/16/17 06/15/17 03:50 03:50 03:55 RBC 3.84 L Hgb 9.9 L Hct 30.1 L MCV 78.5 L MCH 25.8 L Gran % 81.4 H Lymph % (Auto) 8.5 L Gran # Lymph # (Auto) 0.8 L POC PT POC INR Glucose 184 H Total Protein 5.2 L 5.3 L Albumin 2.6 L 2.9 L Triglycerides 158 H 06/15/17 03:55 RBC 3.75 L Hgb 9.8 L Hct 29.8 L MCV 79.3 L MCH Gran % 82.0 H Lymph % (Auto) 9.2 L Gran # 8.4 H Lymph # (Auto) 0.9 L POC PT POC INR Glucose Total Protein Albumin Triglycerides Meds: Medications Acetaminophen (Tylenol) 650 mg PO Q6HP PRN PRN Reason: PAIN/FEVER > 101 Hydrocodone Bitart/Acetaminophen ([place] 5/325mg) 1 tab PO Q4HP PRN PRN Reason: PAIN LEVEL 3-6 Last Admin: 06/17/17 21:21 Dose: 1 tab Albuterol/Ipratropium (Duoneb) 3 ml NEB Q6HRT [facility] Last Admin: 06/17/17 19:07 Dose: 3 ml Amlodipine Besylate (Norvasc) 10 mg PO QDAY [facility] Aspirin (Aspirin) 81 mg PO DAILY [facility] Atorvastatin Calcium (Lipitor) 40 mg PO HS [facility] Last Admin: 06/17/17 21:21 Dose: 40 mg Carvedilol (Coreg) 25 mg PO BIDCC [facility] Last Admin: 06/17/17 17:09 Dose: 25 mg Ceftriaxone Sodium (Rocephin) 2 gm IV Q24H [facility] Clopidogrel Bisulfate (Plavix) 75 mg PO DAILY [facility] Dextrose (Dextrose 50%) 0 ml IV UD PRN PRN Reason: Hypoglycemia Diagnostic Test (Pha) (Accu-Chek) 1 each FS ACHS [facility] Last Admin: 06/17/17 21:03 Dose: 1 each Famotidine (Pepcid) 20 mg PO BID [facility] Last Admin: 06/17/17 21:21 Dose: 20 mg Fluoxetine HCl (Prozac) 20 mg PO DAILY [facility] Furosemide (Lasix) 20 mg PO BIDD [facility] Last Admin: 06/17/17 17:09 Dose: 20 mg Gabapentin (Neurontin) 600 mg PO Q8 [facility] Last Admin: 06/17/17 21:37 Dose: 600 mg Glucose (Insta-Glucose) 15 gm PO PRN PRN PRN Reason: Hypoglycemia Heparin Sodium (Porcine) (Heparin) 5,000 unit SQ Q12 [facility] Last Admin: 06/17/17 21:23 Dose: 5,000 unit Insulin Glargine (Lantus) 30 unit SQ HS [facility] Last Admin: 06/17/17 21:23 Dose: 30 unit Insulin Human Lispro (Humalog) 0 unit SQ [facility] PRN Reason: Protocol Last Admin: 06/17/17 21:23 Dose: 6 unit Isosorbide Mononitrate (Imdur) 120 mg PO DAILY [facility] Losartan Potassium (Cozaar) 100 mg PO DAILY [facility] Omeprazole (Prilosec) 20 mg PO ACB [facility] Ondansetron HCl (Zofran) 4 mg IV Q4HP PRN PRN Reason: Nausea And Vomiting Pramipexole Dihydrochloride (Mirapex) 0.125 mg PO HS [facility] Last Admin: 06/17/17 21:21 Dose: 0.125 mg Sodium Chloride (Saline Flush) 10 ml IV Q8 [facility] Last Admin: 06/17/17 21:38 Dose: 10 ml Spironolactone (Aldactone) 25 mg PO DAILY [facility] Trazodone HCl (Desyrel) 25 mg PO HSP PRN PRN Reason: Insomnia Last Admin: 06/17/17 21:21 Dose: 25 mg Medical - PN: A/P - Time Spent With Patient Total time spent is greater than 50% in coordination of care (as documented) at patient's floor/unit and/or counseling patient: less than 15 minutes - Narrative A/P Narrative: A/P Leucocytosis/ Weakness/ Pneumonia : Wbc count back to normal today, likely secondary to pna, iv rocephin and zithromax, follow cultures, neg growth so far. Total of 7 days of abx planned for now. Pleural effusion, Exudative by LDH/ Protein Criteria : likely due to malignancy , pulm consulted, given patients worsening shortness of breath, plan to tap again, also patient is scheduled for lymph node excision bx tomorrow. Abdominal Lymphadenopathy: Likely Non hodgkins as per radiology, surgery consulted, plan for excision biopsy in AM. DM: Hold oral meds, start on lantus and ssi while inpatient. Glucose control at goal, on lantus 30, qhs, and humalong ssi, medium scale protocol. Hypotension/ Relative/ Dizziness/ Orthostatic symptoms: resumed all home meds, monitor Lactic acidosis: IV fluids, recheck lactate, BP is quite good in the hospital, HTN: continue coreg, aldactone, losartan and isosorbide,resume lasix yesterday, and plan to resume amlodipine now that the bp is stable. CAD: S/P cabg, no chest pain, trop neg, resume asa, plavix, and beta kel[place] and nitrate. HLD on statin continue same Neuropathy: on Neurontin, continue same Depression: on fluoxetine, continue same DVT hep sq Diet Carb Consistent, Cardiac, Full code. Medical - PN: Qual - Stroke Symptom Onset Unknown: No - VTE Deep Vein Thrombosis/Pulmonary Embolism Present on Admission: No
[2017-06-18] MEDS: IPRATROPIUM/ALBUTEROL 3 ML AMPUL.NEB NEB SCH ×3 (01:03→12:40)
[2017-06-18] MEDS: GABAPENTIN 300 MG CAPSULE PO SCH ×2 (05:51→15:20)
[2017-06-18] MEDS: 0.9 % SODIUM CHLORIDE 10 ML SYRINGE IV SCH ×2 (05:51→15:20)
[2017-06-18] MEDS: HYDROcodone/APAP 5/325MG TABLET PO PRN (06:54)
[2017-06-18 06:56] LABS: Basophils # (Auto) 0 K/mcL (0.0-0.3); Basophils % (Auto) 0 % (0.0-2.0); Eosinophils # (Auto) 0.1 K/mcL (0.0-0.7); Eosinophils % (Auto) 0.8 % (0.0-7.0); Granulocytes % (Auto) 86.4 % (38.0-78.0); Lymphocytes # (Auto) 0.7 K/mcL (1.5-4.8); Mean Cell Volume 78.5 fL (80.0-100.0); Mean Corpuscular HGB Conc 32.9 g/dL (31.0-36.0); Mean Corpuscular Hemoglobin 25.8 pg (26.0-34.0); Monocytes # (Auto) 0.8 K/mcL (0.1-0.9); Monocytes % (Auto) 6.8 % (1.0-12.0); Platelet Count 160 K/mcL (140-440); RBC 3.84 M/mcL (4.50-5.90); Red Cell Distribution Width 14.3 % (11.5-14.5)
[2017-06-18 07:26] LABS: ALT/SGPT 8 U/l (0-40); Albumin 2.5 gm/dL (3.2-5.2); Albumin/Globulin Ratio 0.9 (1.0-2.3); Alkaline Phosphatase 79 U/L (39-117); Bilirubin,Direct < 0.2 mg/dL (0.0-0.3); Blood Urea Nitrogen 20 mg/dl (8-23); Gamma Glutamyl Transpeptidase 11 U/L (8-61); Magnesium 1.8 mg/dL (1.6-2.5); Uric Acid 6.6 mg/dL (2.5-8.0)
[2017-06-18] MEDS ORDERED: OMEPRAZOLE 20 MG CAPSULE PO SCH (07:30)
[2017-06-18] MEDS: INSULIN LISPRO 1 UNIT/0.01 ML UNIT SQ SCH ×2 (08:07→12:10)
[2017-06-18] MEDS: CARVEDILOL 12.5 MG TABLET PO SCH (08:08)
[2017-06-18] MEDS: HEPARIN 5,000 UNIT/ML VIAL SQ SCH (08:08)
[2017-06-18] MEDS: FAMOTIDINE 20 MG TABLET PO SCH (08:09)
[2017-06-18] MEDS: FUROSEMIDE 20 MG TABLET PO SCH (08:10)
[2017-06-18] MEDS ORDERED: FLUoxetine HCL 20 MG CAPSULE PO SCH (09:00)
[2017-06-18] MEDS ORDERED: SPIRONOLACTONE 25 MG TABLET PO SCH (09:00)
[2017-06-18] MEDS ORDERED: ISOSORBIDE MONONITRATE 60 MG TAB.XL.24H PO SCH (09:00)
[2017-06-18] MEDS ORDERED: cefTRIAXone 2 GM VIAL IV SCH (09:00)
[2017-06-18] MEDS ORDERED: CLOPIDOGREL 75 MG TABLET PO SCH (09:00)
[2017-06-18] MEDS ORDERED: amLODIPine 10 MG TABLET PO SCH (09:00)
[2017-06-18] MEDS ORDERED: ASPIRIN 81 MG TAB.CHEW PO SCH (09:00)
[2017-06-18] MEDS ORDERED: LOSARTAN 50 MG TABLET PO SCH (09:00)
--- NOTE | 2017-06-18 11:17 | Non-GYN Cytology Report ---
NON CHAIN DYER SPECIMEN NG DX CATEGORY Atypical MICROSCOPIC DIAGNOSIS PLEURAL FLUID, LEFT, THORACENTESIS: -- ATYPICAL LYMPHOID INFILTRATE, SEE COMMENT. (SEH:kashf) COMMENT: The patient's history of diffuse adenopathy is noted. Cytologic preparations demonstrate an atypical lymphoid infiltrate. Further work-up is deferred to the left axillary lymph node surgical specimen ([id number]). MICROSCOPIC DESCRIPTION Cytologic preparations are of low to moderate cellularity and consist predominantly of small to medium-size lymphocytes with occasional scattered large pleomorphic cells. By immunohistochemistry, the majority of the small to medium-size cells are CD3 positive T-cells. CD20 highlights occasional small and rare large cells. CD68 highlights scattered histiocytes, WT-1 highlights scattered mesothelial cells, and MOC-31 is negative. Some of the tests reported here may not have been cleared or approved by the U.S. Food and Drug Administration (FDA). However, the FDA has determined that such clearance or approval is not necessary. Pursuant to the requirements of CLIA, this laboratory has established and verified the accuracy and precision of all tests, and additional information about these tests is available upon request. All technical controls are adequate. EXTERNAL COMMENT Electronically Signed by: Ruthy Recinos D.O.
--- NOTE | 2017-06-18 11:17 | Non-GYN Cytology Report ---
NON WAREHOUSE TEAM LEADER SPECIMEN NG DX CATEGORY Atypical MICROSCOPIC DIAGNOSIS PLEURAL FLUID, LEFT, THORACENTESIS: -- RARE ATYPICAL CELLS PRESENT, SEE COMMENT. (SEH:beatirz) COMMENT: The patient's history of diffuse adenopathy is noted. Cytologic preparations consist predominantly of small lymphocytes with scattered large pleomorphic cells. Further work-up is deferred to the most recent pleural fluid cytology specimen ([id number]; 06/16/2017) and the left axillary lymph node surgical specimen ([id number]; 06/17/2017). MICROSCOPIC DESCRIPTION Cytologic preparations are of low to moderate cellularity and consist predominantly of small to medium-size lymphocytes with occasional scattered large pleomorphic cells which show multilobated, convoluted nuclei, irregular nuclear membranes, open chromatin, and moderate to scant amounts of amphophilic cytoplasm. Scattered background reactive mesothelial cells and histiocytes are also present. No epithelial infiltrate is noted. CLINICAL HISTORY Left pleural effusion. EXTERNAL COMMENT 1 cell block Electronically Signed by: Ruthy Rceinos D.O.
--- NOTE | 2017-06-18 13:55 | Discharge Summary ---
Medical - DS: Prov Patient information: Note initiated : 06/18/17 at 1:42 pm Service Date, if different from initiated Date: [] Patient: Bishnu Bailey 62 y/o M admitted on 06/13/17 for Weakness/Pneumonia , CHF, Sepsis. Date of admission: 06/13/17 17:03 Discharge date: 06/18/17 Primary care physician: Fritz Schwartz Consults: 06/13/17 15:55 Consult to Physician [CONS] Stat Comment: Consulting Provider: Erin Ricks Reason For Exam: Physician to Consult 06/15/17 10:17 Consult to Physician [CONS] Routine Comment: Consulting Provider: Krishna Peña Reason For Exam: Physician to Consult 06/15/17 12:49 Consult to Physician [CONS] Routine Comment: Consulting Provider: Wilmar Pena Reason For Exam: Physician to Consult Medical - DS: Meds - Discharge Medications Active and Home Medications: Home Medications aspirin 81 mg tablet,delayed release 81 mg PO QDAY 01/15/16 [History Confirmed 06/16/17 Last Taken Unknown] ibuprofen 200 mg capsule 800 mg PO DAILYP PRN 01/15/16 [History Confirmed Last Taken Unknown] melatonin 10 mg capsule 10 mg PO HS 01/15/16 [History Confirmed 06/16/17 Last Taken Unknown] omeprazole 20 mg capsule,delayed release 20 mg PO QDAY #90 cap 07/08/16 [Rx Confirmed 06/16/17 Last Taken Unknown] losartan 100 mg tablet 100 mg PO QDAY #90 tab 07/30/16 [Rx Confirmed 06/16/17 Last Taken Unknown] insulin glargine 100 unit/mL subcutaneous solution 30 unit SUB-Q .nightly #10 ml 10/17/16 [Rx Confirmed 06/16/17 Last Taken Unknown] metformin 1,000 mg tablet 1,000 mg PO BID #180 tab 10/17/16 [Rx Confirmed Last Taken Unknown] isosorbide mononitrate ER 60 mg tablet,extended release 24 hr 120 mg PO QAM # 180 tab 10/21/16 [Rx Confirmed 06/16/17 Last Taken Unknown] carvedilol 25 mg tablet 25 mg PO BID #180 tab 02/20/17 [Rx Confirmed 06/16/17 Last Taken Unknown] clopidogrel 75 mg tablet 75 mg PO QDAY #90 tab 03/07/17 [Rx Confirmed 06/16/17 Last Taken Unknown] spironolactone 25 mg tablet 25 mg PO QAM #90 tab 03/07/17 [Rx Confirmed Last Taken Unknown] Nitroglycerin [Nitrostat] 0.4 mg SL Q5M PRN #20 tab 05/05/17 [Rx Confirmed 06/16 Last Taken Unknown] empagliflozin 25 mg tablet 25 mg PO QDAY #90 tab 05/05/17 [Rx Confirmed Last Taken Unknown] pramipexole 0.25 mg tablet 0.125 mg PO QHS #90 tab 05/08/17 [Rx Confirmed Last Taken Unknown] amlodipine 10 mg tablet 10 mg PO QDAY #90 tab 05/12/17 [Rx Confirmed 06/16/17 Last Taken Unknown] atorvastatin 40 mg tablet 40 mg PO QDAY #90 tab 05/12/17 [Rx Confirmed 06/16/17 Last Taken Unknown] fluoxetine 20 mg capsule 20 mg PO QDAY #90 cap 05/12/17 [Rx Confirmed 06/16/17 Last Taken Unknown] furosemide 20 mg tablet 20 mg PO BID #180 tab 05/12/17 [Rx Confirmed 06/16/17 Last Taken Unknown] gabapentin 600 mg tablet 600 mg PO Q8H #270 tab 05/22/17 [Rx Confirmed 06/16/17 Last Taken Unknown] Medical - DS: Hosp Hospital course: Mr. Bailey is a 62 year old Male with h/o cad, dm, htn, s/p cabg, presents ot the ER with complaints of weakness fatigue, poor appertite and c ough x 4 weeks. The patient notes that he was doing ok approximately 4 weeks ago, the he noted a gradual decline in his condition, he was more tired, and fatigued, wanting to sleep all the time, no desire to eat or drink much. He noted he was very short of breath on minimal activity. this was accompained by a cough, which was dry. There were no aggravating or reliving factors to patients symptoms, he just progressively got worse. He notes he got dizzy maddi when he stood up or go up, is presently on jardiance. The patient symptoms got worse and therefore he was asked to be seen in the urgent care clinic In the clinic the patient was dizzy, orthostatic were positive and labs showed leucocytosis. He was therefor referred ot the ER for further evaluation In the ER his CXR Was noted to have new onset left sided pleural effusion. Given his elevated leucocytosis, and effusion, and cough, blood cx drawn and rocephin given. Pt also was noted to have elevated lactic acid. Hospital Course: 1. Presumed pneumonia. Finished course of anitbiotics: Rocephin and Azithromycin. 2. Left sided pleural effusion. Thoracentesis 06/13 for 2 L and 06/16 for 1.4 L. Cultures: negative Cytology: non-specific Etiology: unknown. DD lymphoma 3. Diffuse lymphadenopathy findings on CT-chest/abdomen and pelvis S/P axillary lymphnode resection by dr Pena on 06/17. Pathology and flow cytometry are pending 4. CAD Stable Echocardiogram done 06/18: result pending 5.DM, same meds continued 6.HL, same meds continued 7.Depression, same meds Patient is ambulating well, and is feeling close to baseline. Instructions incl: FU with dr Wilmar Pena for suture removal, FU with dr Schwartz for result axillary node biopsy and echocardiogram. If more SOB consider repeat CXR, may need therapeutic thoracentesis. Discharge diagnosis: diffuse lymphadenopathy, community acquired pneumonia - Time Spent with Patient Total time spent providing and/or coordinating discharge services: Greater than 30 minutes (review tests, procedures, explained FU plans, discussed potential diagnoses and treatm.) Medical - DS: Exam - Constitutional Vitals: Vital Signs Temp Pulse Pulse Resp BP Pulse Ox 06/18/17 12:51 93 06/18/17 12:49 68 16 06/18/17 11:24 97.3 F 66 20 99/63 92 06/18/17 08:00 97.2 F 69 18 129/69 92 06/18/17 07:44 93 06/18/17 07:42 68 16 06/18/17 07:05 94 06/18/17 04:00 97.5 F 63 16 147/76 93 06/18/17 00:00 98.0 F 71 18 142/78 90 06/17/17 20:00 97.5 F 87 18 137/68 92 06/17/17 19:53 92 06/17/17 19:30 92 06/17/17 19:16 69 16 06/17/17 16:28 70 133/73 92 06/17/17 16:13 68 141/75 92 06/17/17 15:58 70 141/73 91 06/17/17 15:43 69 137/72 91 06/17/17 15:28 68 131/72 91 06/17/17 15:13 67 131/72 91 06/17/17 14:58 67 129/69 91 06/17/17 14:33 98.2 F 70 17 123/62 92 06/17/17 14:18 70 15 122/64 97 06/17/17 14:03 70 15 101/52 94 06/17/17 13:48 99.6 F H 75 14 93/48 94 Intake and Output 06/17/17 06/18/17 06/18/17 21:59 05:59 13:59 Intake Total 200 / 200 100 / 100 Output Total 700 / 700 550 / 550 Balance -500 / -500 -450 / -450 Intake: Oral 100 / 100 IV - Manual Only 200 / 200 Output: Void Amount 600 / 600 550 / 550 Estimated Blood Loss 100 / 100 Other: Weight 247 lb General appearance: no acute distress - Respiratory Respiratory exam: Present: decreased breath sounds - Cardiovascular Cardiovascular exam: Present: normal rate and rhythm - GI/Abdominal GI/Abdominal exam: Present: normal bowel sounds - Extremities Exam Extremities exam: Absent: calf tenderness, pedal edema Medical - DS: Data Labs on day of discharge: Labs from last 24 hours 06/18/17 06/18/17 03:48 03:48 WBC 11.2 H RBC 3.84 L Hgb 9.9 L Hct 30.2 L MCV 78.5 L MCH 25.8 L MCHC 32.9 RDW 14.3 Plt Count 160 MPV 8.8 Gran % 86.4 H Lymph % (Auto) 6.0 L [place] % (Auto) 6.8 Eos % (Auto) 0.8 Baso % (Auto) 0 Gran # 9.6 H Lymph # (Auto) 0.7 L [place] # (Auto) 0.8 Eos # (Auto) 0.1 Baso # (Auto) 0 Sodium 137 Potassium 4.8 Chloride 99 Carbon Dioxide 25 Anion Gap 13.0 BUN 20 Creatinine 0.8 GFR Calculation 96 Glucose 174 H Uric Acid 6.6 Calcium 9.9 Phosphorus 3.6 Magnesium 1.8 Total Bilirubin < 0.2 Direct Bilirubin < 0.2 GGT 11 AST 11 ALT 8 Alkaline Phosphatase 79 Lactate Dehydrogenase 191 Total Protein 5.3 L Albumin 2.5 L Globulin 2.8 Albumin/Globulin Ratio 0.9 L Triglycerides 97 Preliminary micro results at discharge 06/13/17 14:23 Blood Culture - Preliminary Blood 06/13/17 14:39 Blood Culture - Preliminary Blood - Imaging and Cardiology CT scan - abdomen Status: image reviewed by me, pending Medical - DS: A/P - Patient/Caregiver Discharge Instructions Activity: increase activity as tolerated Diet: Cardiac, Consistent Carbohydrate, Renal/Consistent Carbs Additional Instructions: Follow-up with Dr. Wilmar Pena in his office in 2 weeks for removal of suture Contact Dr. Wilmar Pena for placement of Port-A-Cath if needed for chemotherapy FU with dr Schwartz to discuss result of lymphnode biopsy done 06/17/2017 Obtain CXR if more SOB to check on re-accumulation of L pleural effusion - Follow up Plan Follow up with: Fritz Schwartz DO [Primary Care Provider] - 06/23/17 10:45 am (Please check in at 10:30 am.) Wilmar Pena MD [Physician] - 07/01/17 8:45 am Disposition: Home, Self-Care Prognosis: Good Rehab Potential: Good Overall status at discharge: patient is progressing back to baseline Medical - DS: Qual - VTE Deep Vein Thrombosis/Pulmonary Embolism Present on Admission: No
--- NOTE | 2017-06-19 17:29 | Surgical Pathology Report ---
HISTOLOGY SPECIMEN MICROSCOPIC DIAGNOSIS ADDENDUM COMMENT - JUNE 27, 2017 Addendum to report results of additional studies (performed at [facility], [place], [place]). LYMPH NODES, LEFT AXILLA, EXCISIONAL BIOPSY: -- LARGE B-CELL LYMPHOMA, GERMINAL CENTER B-CELL PHENOTYPE (VIC' ALGORITHM), SEE COMMENT. (SEH:sh) ADDENDUM COMMENT: The neoplastic cells demonstrate variable c-MYC positivity (40-80%) by immunohistochemistry. This, together with the diffuse positive immunoreactivity with BCL-2, is consistent with a double expressor phenotype. FISH studies are positive for t(14;18) involving the BCL-2 gene, IGH rearrangement, and a small population of cells shows abnormal signal pattern of the MYC locus. FISH is negative for a BCL-6 rearrangement, and in situ hybridization is negative for EBV. Please see the attached reports for further details. 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 COMMENT: Histologic sections demonstrate lymph nodes effaced by medium to large neoplastic lymphoid cells which are diffusely positive for CD20, PAX-5, BCL-2, and BCL-6, with a minor subset positive for CD30. CD10 is focally positive, and MUM1 is negative. The Ki-67 proliferation fraction approaches 90%. Concurrently performed flow cytometric evaluation demonstrates a clonal population of large CD10+ B-cells. Additional studies for further classification are pending (cMYC by immunohistochemistry, MIRIAN, and FISH MYC(8q24), BCL6, and t(14;18) IgH/BCL2) and will be reported in an addendum. MICROSCOPIC DESCRIPTION Sections demonstrate lymph nodes which are effaced by medium to large cells exhibiting condensed chromatin, irregular nuclear contours, and moderate amounts of amphophilic cytoplasm. There is extranodal extension with involvement of the perinodal adipose tissue. For diagnostic purposes, immunohistochemical stains are performed to further evaluate the neoplastic cells. All controls react appropriately. Stains performed on block A2. CD20: Diffusely positive in neoplastic cells. PAX-5: Diffusely positive in neoplastic cells. CD3: Highlights admixed small T-lymphocytes. CD10: Focally positive in neoplastic cells, weak to intermediate, approximately 20-30% of cells. BCL-1: Pedominantly negative in neoplastic cells. BCL-2: Diffusely positive in neoplastic cells. BCL-6: Diffusely positive in neoplastic cells. MUM-1: Highlights subset of neoplastic cells, 10-15% KI-67: Marked increased, approaches 90% CD21: Highlights dendritic meshwork. CD30: Highlights subset of neoplastic cells ALK: Negative. CD15: Negative. CD5: Staining mirrors that of CD3. FABY: Negative. Flow cytometric evaluation (technical component performed at [facility]) demonstrates a clonal population of large CD10+ B-cells representing approximately 50% of the cells analyzed. Some of the tests reported here may not have been cleared or approved by the U.S. Food and Drug Administration (FDA). However, the FDA has determined that such clearance or approval is not necessary. Pursuant to the requirements of CLIA, this laboratory has established and verified the accuracy and precision of all tests, and additional information about these tests is available upon request. All technical controls are adequate. PROCEDURAL IMPRESSION Diffuse lymphadenopathy. GROSS DESCRIPTION The specimen is received fresh in saline labeled with the patient identifiers only and consists of multiple yellow-gautam fragments of fibroadipose tissue which have an aggregate measurement of 8.5 x 4 x 2.5 cm. Within the soft tissue are multiple pink-gautam lymph nodes measuring from 2.2 to 3 cm in greatest dimension. Sectioning demonstrates partially fatty replaced nodes which have a white-gautam, fleshy cut surface with focal peripheral hemorrhage. Photographer Portrait tissue submitted in RPMI fixative for flow cytometric evaluation. Photographer Portrait sections from all nodes are submitted in six cassettes for histologic evaluation. (SEH:adj) Electronically Signed by: Ruthy Recinos D.O.
--- NOTE | 2017-06-23 11:43 | Operative Note ---
DATE OF OPERATION: 06/17/2017 PREOPERATIVE DIAGNOSIS: Diffuse lymphadenopathy. POSTOPERATIVE DIAGNOSIS: Diffuse lymphadenopathy. PROCEDURE: Left axillary lymphadenectomy. SURGEON: Anish Pena M.D. DESCRIPTION: Under general anesthesia, the patient was prepped and draped in the sterile field. Timeout procedure was carried out as per protocol. Transverse incision was made in the midportion of the axilla over the palpable nodes. Incision extended down through the deep fascia. In the deep fascial plane, multiple nodes were encountered. Using sharp and blunt dissection, these nodes were taken out en gianni. The larger nodes were very firm and showed areas of supposed hemorrhage. The specimens were sent for pathologic evaluation. Irrigation was carried out. Deep tissue was closed with 2-0 Monocryl. Subcutaneous tissue was closed with 3-0 Monocryl. Skin was closed with 4-0 Vicryl. A dressing of 4 x 4 gauze and tape was placed. The patient tolerated the procedure well. He was awakened from anesthesia, transferred to a bed, and taken to the postanesthetic care unit in a stable, satisfactory condition. LCS:katherine Job ID: [id number] Doc ID: [id number] Anish Pena M.D.
== END 2017-06-18 15:35 | disposition home or self-care (01) | DRG 823 ==
LOC: ED 13:46 → ICU 16:45 → MEDSUR 06-14 13:58
PROVIDERS: ADMIT Internal Medicine; ATTEND Specialist

== ENCOUNTER 2018-05-19 08:41 | Inpatient (IN) ==
[2018-05-15 15:03] LABS: Appearance,Urine CLEAR; Bacteria,Urine 0 /hpf (0); Bilirubin,Urine NEG (NEG); Color,Urine YELLOW; Glucose,Urine (UA) >=500 mg/dL (NEG); Leukocyte Esterase,Urine NEG /uL (NEG); Mucus,Urine FEW /hpf (0); Protein,Urine NEG (NEG); Urine Blood NEG mg/dL (<0.03); Urine RBC < 1 /hpf (0-1); Urine Squamous Epithelial Cell < 1 /hpf (0-4); Urine WBC < 1 /hpf (0-4); Urobilinogen,Urine NEG (NEG)
[2018-05-15 15:47] LABS: Basophils # (Auto) 0 K/mcL (0.0-0.3); Basophils % (Auto) 0.1 % (0.0-2.0); Eosinophils # (Auto) 0.1 K/mcL (0.0-0.7); Eosinophils % (Auto) 0.9 % (0.0-7.0); Granulocytes % (Auto) 67.2 % (38.0-78.0); Lymphocytes # (Auto) 1.4 K/mcL (1.5-4.8); Lymphocytes % (Auto) 25.1 % (15.5-49.0); Mean Cell Volume 84.2 fL (80.0-100.0); Mean Corpuscular HGB Conc 33.1 g/dL (31.0-36.0); Mean Corpuscular Hemoglobin 27.8 pg (26.0-34.0); Monocytes # (Auto) 0.4 K/mcL (0.1-0.9); Monocytes % (Auto) 6.7 % (1.0-12.0); Platelet Count 137 K/mcL (140-440); RBC 5.13 M/mcL (4.50-5.90); Red Cell Distribution Width 17.1 % (11.5-14.5)
[2018-05-15 16:11] LABS: Blood Urea Nitrogen 20 mg/dl (8-23)
[2018-05-15 16:15] LABS: Estimated Average Glucose(eAG) 140 mg/dL; Hemoglobin A1C 6.5 % HGB (4.0-6.0)
[~2018-05-19 08:41] MED LIST: 0.9 % SODIUM CHLORIDE 9 ML, KETOROLAC 30 MG, ROPIVACAINE HCL/PF 49.5 ML, EPINEPHrine 0.... IJ SCH; ACETAMINOPHEN 500 MG TABLET PO SCH; CELECOXIB 200 MG CAPSULE PO SCH; ceFAZolin 1 GM VIAL IV SCH; oxyCODONE 10 MG TAB.ER.12H PO SCH
[2018-05-19] MEDS ORDERED: GABAPENTIN 400 MG CAPSULE PO SCH (09:00)
[2018-05-19] MEDS ORDERED: LIDOCAINE HCL/PF 100 MG/5 ML SYRINGE IV ONE (13:40)
[2018-05-19] MEDS ORDERED: ePHEDrine 50 MG/ML AMPUL IV ONE (13:40)
[2018-05-19] MEDS ORDERED: ROPIVACAINE HCL/PF 20 ML VIAL IJ ONE (13:40)
[2018-05-19] MEDS ORDERED: MIDAZOLAM 5 MG/5 ML VIAL IV ONE (13:40)
[2018-05-19] MEDS ORDERED: TRANEXAMIC ACID 1,000 MG/10 ML VIAL IV ONE ×2 (13:40→13:46)
[2018-05-19] MEDS ORDERED: ONDANSETRON 4 MG/2 ML VIAL IV ONE (13:40)
[2018-05-19] MEDS ORDERED: GLYCOPYRROLATE 0.2 MG/ML VIAL IV ONE (13:40)
[2018-05-19] MEDS ORDERED: PROPOFOL 200 MG/20 ML VIAL IV ONE (13:40)
[2018-05-19] MEDS ORDERED: DEXAMETHASONE 10 MG/ML VIAL IV ONE (13:40)
[2018-05-19] MEDS ORDERED: ACETAMINOPHEN 325 MG TABLET PO PRN (13:46)
[2018-05-19] MEDS ORDERED: HYDROmorphone 2 MG/ML VIAL IV PRN ×2 (13:46→14:52)
[2018-05-19] MEDS ORDERED: FLEETS ADULT ENEMA PR PRN (13:46)
[2018-05-19] MEDS ORDERED: BENZOCAINE/MENTHOL 1 LOZENGE PO PRN (13:46)
[2018-05-19] MEDS ORDERED: BISACODYL 10 MG SUPP.RECT PR PRN (13:46)
[2018-05-19] MEDS ORDERED: MAGNESIUM HYDROXIDE 30 ML ORAL.SUSP PO PRN (13:46)
[2018-05-19] MEDS ORDERED: POLYETHYLENE GLYCOL 3350 17 GM PACKET PO PRN (13:46)
[2018-05-19] MEDS ORDERED: ONDANSETRON 4 MG/2 ML VIAL IV PRN ×2 (13:46→14:52)
[2018-05-19] MEDS ORDERED: TEMAZEPAM 15 MG CAPSULE PO PRN (13:46)
--- NOTE | 2018-05-19 13:46 | Brief Operative Note ---
Date of procedure: 05/19/18 Pre-op diagnosis: Right knee djd Post-op diagnosis: same Procedure: Right tka with jonny robot Grafts/Implants: Yes Anesthesia: GETA Complications: none Surgeon: Kareem Flanagan [employer] System Mechanic: Daron Moreland Estimated blood loss (cc): 20 Tourniquet Time (Minutes): 55 Specimens Removed/Pathology: none sent Condition: stable Disposition: PACU
[2018-05-19] MEDS ORDERED: IBUPROFEN 800 MG TABLET PO PRN (13:48)
[2018-05-19] MEDS ORDERED: NITROGLYCERIN 0.4 MG TAB.SUBL SL PRN (13:48)
[2018-05-19] MEDS ORDERED: GENTAMICIN SULFATE 800 MG/20 ML VIAL IR ONE (14:18)
[2018-05-19] MEDS ORDERED: IPRATROPIUM/ALBUTEROL 3 ML AMPUL.NEB NEB PRN (14:52)
[2018-05-19] MEDS ORDERED: NALOXONE HCL 0.4 MG/ML VIAL IV PRN (14:52)
[2018-05-19] MEDS ORDERED: fentaNYL 100 MCG/2 ML VIAL IV PRN (14:52)
[2018-05-19] MEDS ORDERED: FLUMAZENIL 0.1 MG/ML ML IV PRN (14:52)
[2018-05-19] MEDS ORDERED: METHOCARBAMOL 1,000 MG/10 ML VIAL IV PRN (14:52)
[2018-05-19] MEDS ORDERED: METOPROLOL TARTRATE 5 MG/5 ML VIAL IV PRN (14:52)
[2018-05-19] MEDS ORDERED: diphenhydrAMINE 50 MG/ML VIAL IV PRN (14:52)
[2018-05-19] MEDS ORDERED: ATROPINE SULFATE 0.4 MG/ML VIAL IV PRN (14:52)
[2018-05-19] MEDS ORDERED: PROMETHAZINE 25 MG/ML VIAL IV PRN (14:52)
[2018-05-19] MEDS ORDERED: ePHEDrine 50 MG/ML AMPUL IV PRN (14:52)
[2018-05-19] MEDS ORDERED: LACTATED RINGERS 1,000 ML IV SCH (15:00)
--- NOTE | 2018-05-19 15:32 | Operative Note ---
DATE OF OPERATION: 05/19/2018 PREOPERATIVE DIAGNOSIS: Knee degenerative arthritis on the right side. POSTOPERATIVE DIAGNOSIS: Knee degenerative arthritis on the right side. PROCEDURE: Right total knee arthroplasty. SURGEON: Kareem Flanagan M.D. OPERATOR SPECIALIST COMMUNICATIONS: Daron Moreland PA-C. ANESTHESIA: General LMA anesthesia. COMPLICATIONS: None. DESCRIPTION OF PROCEDURE: The patient was brought to the operating room and put to sleep with general LMA anesthesia. Once asleep, the patient had the right leg sterilely prepped and draped in the usual sterile fashion. Ioban was placed over the skin and a timeout performed to confirm the operative site. Preop antibiotics had been given and tranexamic acid given. Tourniquet inflated to 250 pounds of pressure. We made a midline incision, a midvastus approach was performed. We placed two pins above and below the knee and registered the center of hip rotation. Intraarticular pins and medial and lateral malleoli were registered. Points on the femur and tibia, thirty points on each were registered, and then we balanced the knee at 90 degrees and 15 degrees. Once perfectly balanced and the implant final position had been determined, we then brought in the robot and the bony cuts were made. We removed large spurs posteriorly and any spurs around the knee and excess bone. All this had been done. We then placed a tibial baseplate, rotation set by the robot. We then punched this into place, the femoral component placed, and then poly liners were tried. The trial of the 13 was the most appropriate gaining 0 degrees extension and full range of motion. The patella tracked well. We then resurfaced the patella. It measured 24 mm in total thickness. This was cut to 14 mm and then we placed a 35 mm patellar oval button. It tracked very well. A small chamfer cut was made laterally for any overhanging bone. We irrigated thoroughly and then cemented into place the above-mentioned sizes. The femoral component was cemented as well as a longer-stemmed tibial baseplate. Cement with antibiotics was placed because of his history of significant diabetes and high risk for infection. Once all this had been placed, then a 13 mm poly insert was placed. We then irrigated thoroughly and then closed the midvastus approach with #1 Stratafix x2 sutures. This closed very well. We irrigated thoroughly and closed the skin with Stratafix and 2-0 Vicryl and adhesive closure. Portals were closed with 4-0 nylon. The pins were removed, as well as intraarticular pins and all was accounted for. We irrigated thoroughly and then placed a sterile bandage. The patient tolerated this well. There were no complications. RBH:katherine Job ID: [id number] Doc ID: [id number] Kareem Flanagan MD
[2018-05-19] MEDS ORDERED: DEXTROSE 50% 50 ML VIAL IV PRN (16:10)
[2018-05-19] MEDS ORDERED: DEXTROSE 31 GM ORAL.SUSP PO PRN (16:10)
--- NOTE | 2018-05-19 16:20 | Discharge Summary ---
Ortho Discharge - TKA - Patient Instructions Diet: Regular Diet Activity: activity as tolerated, weight bearing as tolerated Total Knee Protocol: For Total Knee: Start ROM BEE with stationary bike or rocking chair. Work on gaining full extension of knee. Posterior dislocation precautions provided. Hip abductor strengthening and gait training instructions provided. Apply Cryocuff as instructed. Dressing Care: May shower in 2 days - Problem Maintenance (1) Hx of total knee arthroplasty Status: Acute - Follow Up Plan Disposition: Home, Self-Care Prognosis: Good Rehab Potential: Good I certify that the patient requires SNF services: No Overall status at discharge: patient is progressing back to baseline - Orders For Discharge Prescriptions: Aspirin [Ecotrin] 325 mg PO BID #60 tab.ec Docusate Sodium [Colace] 100 mg PO BID #60 cap oxyCODONE/APAP [Percocet 5-325 mg] 1 - 2 tab PO Q4HP PRN #75 tab PRN Reason: Pain Level 3-6
[2018-05-19] MEDS: oxyCODONE/APAP 5/325MG TABLET PO PRN ×2 (16:38→21:14)
[2018-05-19] MEDS: 0.9 % SODIUM CHLORIDE 10 ML SYRINGE IV SCH ×2 (16:42→19:50)
--- NOTE | 2018-05-19 17:02 | XRay Report ---
CLINICAL INFORMATION: Post-Op Total Knee COMPARISON: Preoperative x-rays 02/26/2018. FINDINGS: Total knee prostheses is anatomically aligned. No osseous abnormality. Periarticular soft tissue swelling gas seen as expected IMPRESSION: Negative Interpreted and Authenticated by: Fritz Sood 05/19/18
[2018-05-19] MEDS: metFORMIN 500 MG TABLET PO SCH (17:11)
[2018-05-19] MEDS: CARVEDILOL 12.5 MG TABLET PO SCH (17:11)
[2018-05-19] MEDS: KETOROLAC 15 MG/ML VIAL IV SCH ×2 (17:12→23:58)
[2018-05-19] MEDS: INSULIN LISPRO 1 UNIT/0.01 ML UNIT SQ SCH ×2 (17:12→21:12)
[2018-05-19] MEDS: 0.45 % SODIUM CHLORIDE 1,000 ML IV SCH (17:13)
[2018-05-19] MEDS: GABAPENTIN 400 MG CAPSULE PO SCH ×2 (17:25→21:13)
[2018-05-19] MEDS: FUROSEMIDE 20 MG TABLET PO SCH (17:27)
[2018-05-19] MEDS ORDERED: INSULIN GLARGINE, HUMAN 1 UNIT/0.01 ML SQ SCH (21:00)
[2018-05-19] MEDS ORDERED: PRAMIPEXOLE 0.25 MG TABLET PO SCH (21:00)
[2018-05-19] MEDS ORDERED: ASPIRIN 325 MG ENTERIC COATED TABLET PO SCH (21:00)
[2018-05-19] MEDS ORDERED: INSULIN DETEMIR 45 UNIT SUB-Q SCH (21:00)
[2018-05-19] MEDS ORDERED: ATORVASTATIN 20 MG TABLET PO SCH (21:00)
[2018-05-19] MEDS ORDERED: SENNOSIDES 1 TABLET PO SCH (21:00)
[2018-05-19] MEDS: DOCUSATE SODIUM 100 MG CAPSULE PO SCH (21:11)
[2018-05-19] MEDS: ceFAZolin 1 GM VIAL IV SCH (21:29)
[2018-05-20] MEDS: oxyCODONE/APAP 5/325MG TABLET PO PRN ×3 (01:51→10:44)
[2018-05-20] MEDS: 0.45 % SODIUM CHLORIDE 1,000 ML IV SCH ×2 (03:22→11:06)
[2018-05-20] MEDS: ceFAZolin 1 GM VIAL IV SCH (05:41)
[2018-05-20] MEDS: KETOROLAC 15 MG/ML VIAL IV SCH ×2 (05:47→11:28)
[2018-05-20] MEDS: 0.9 % SODIUM CHLORIDE 10 ML SYRINGE IV SCH (05:47)
--- NOTE | 2018-05-20 07:16 | Orthopedic Progress Note ---
Subjective Patient information: Note initiated : 05/20/18 at 7:15 am Service Date, if different from initiated Date: [] Patient: Bishnu Bailey 63 y/o M admitted on 05/19/18 for Right Robotic Total Knee Arthroplasty. Chief Complaint: [Pt is stable this morning on post operative day 1 without any significant concerns or complaints. Patients vital signs have remained stable. Patients dressing is dry and is grossly intact from a neurovascular and motor standpoint. Patients 10 point ROS is otherwise negative. ] Objective Vital signs: Vital Signs Temp Pulse Pulse Resp BP BP Pulse Ox 05/20/18 07:10 98.8 F 20 144/82 97 05/20/18 03:40 98.4 F 65 12 124/65 92 05/20/18 00:00 98.4 F 70 12 116/72 92 05/19/18 23:55 92 05/19/18 19:13 98.1 F 65 12 136/81 92 05/19/18 17:30 67 166/89 95 05/19/18 17:16 66 161/86 94 05/19/18 17:01 65 169/86 94 05/19/18 16:45 57 L 163/78 91 05/19/18 16:31 58 L 165/86 05/19/18 16:20 97.0 F 64 14 166/79 97 05/19/18 16:10 97.1 F 60 11 L 170/95 93 05/19/18 16:00 96.4 F L 61 10 L 162/79 94 05/19/18 15:50 97.3 F 60 14 182/77 99 05/19/18 15:45 63 16 177/76 100 05/19/18 15:40 62 13 199/87 100 05/19/18 15:36 98.3 F 62 16 191/89 100 05/19/18 09:28 96.2 F L 62 16 138/85 97 Intake and Output 05/19/18 05/20/18 05/20/18 21:59 05:59 13:59 Intake Total 3360 / 3360 2300 / 2300 Output Total 400 / 400 900 / 900 Balance 2960 / 2960 1400 / 1400 Intake: IV 1000 / 1000 Sodium Chloride 0.45% 1,000 ml 1000 / 1000 @ 100 mls/hr IV .Q10H [facility] Rx#: [id number] Oral 1660 / 1660 1300 / 1300 IV - Manual Only 1700 / 1700 Output: Urine Catheter Amount 400 / 400 Straight 400 / 400 Void Amount 900 / 900 Other: Meal Dinner Percent of Meal Consumed 100% Urine Appearance Clear Clear Straight Clear Urine Color Pale Straw Straight Pale Urine Odor Strong Weight 256 lb Intake & Output: Intake & Output 05/19/18 05/20/18 05/20/18 21:59 05:59 13:59 Intake Total 3360 / 3360 2300 / 2300 Output Total 400 / 400 900 / 900 Balance 2960 / 2960 1400 / 1400 Weight 256 lb Intake: IV 1000 / 1000 Sodium Chloride 0.45% 1,000 ml 1000 / 1000 @ 100 mls/hr IV .Q10H [facility] Rx#: [id number] Oral 1660 / 1660 1300 / 1300 IV - Manual Only 1700 / 1700 Output: Urine Catheter Amount 400 / 400 Straight 400 / 400 Void Amount 900 / 900 Other: Meal Dinner Percent of Meal Consumed 100% Urine Appearance Clear Clear Straight Clear Urine Color Pale Straw Straight Pale Urine Odor Strong Incision: Yes healing Incision clean and dry: Yes Dressing: Yes clean Weight bearing status: full Neurological exam IM: Yes motor sensory intact, Yes neurovascular intact Extremities exam IM: Yes Foot pink and warm, Yes neurovascular intact - Labs CBC & BMP: 05/20/18 04:15 05/15/18 13:42 Labs: Orthopedic Labs 05/15/18 13:42 PT 13.3 INR 1.0 APTT 34 05/20/18 05/15/18 04:15 13:43 Hgb 14.3 Hct 35.3 L 43.2 Assessment and Plan (1) Hx of total knee arthroplasty The patient has been educated regarding dressing care, Physical Therapy recommendations, home exercises, restrictions, and follow up appointments. The patient has had all necessary DME prescribed. The patient has remained relatively stable during their hospital course. Leave Dermabond patch intact until followup Status: Acute
[2018-05-20] MEDS: FUROSEMIDE 20 MG TABLET PO SCH (07:30)
[2018-05-20] MEDS: CARVEDILOL 12.5 MG TABLET PO SCH (07:30)
[2018-05-20] MEDS ORDERED: OMEPRAZOLE 20 MG CAPSULE PO SCH (07:30)
[2018-05-20] MEDS: metFORMIN 500 MG TABLET PO SCH (07:30)
[2018-05-20] MEDS: INSULIN LISPRO 1 UNIT/0.01 ML UNIT SQ SCH ×2 (07:31→11:47)
[2018-05-20] MEDS: DOCUSATE SODIUM 100 MG CAPSULE PO SCH (08:30)
[2018-05-20] MEDS: GABAPENTIN 400 MG CAPSULE PO SCH (08:30)
[2018-05-20] MEDS ORDERED: ISOSORBIDE MONONITRATE 60 MG TAB.XL.24H PO SCH (09:00)
[2018-05-20] MEDS ORDERED: SPIRONOLACTONE 25 MG TABLET PO SCH (09:00)
[2018-05-20] MEDS ORDERED: Empagliflozin [Jardiance] 25 MG PO SCH (09:00)
[2018-05-20] MEDS ORDERED: MAGNESIUM OXIDE 400 MG TABLET PO SCH (09:00)
[2018-05-20] MEDS ORDERED: CLOPIDOGREL 75 MG TABLET PO SCH (09:00)
== END 2018-05-20 12:30 | disposition home or self-care (01) | DRG 554 ==
LOC: MEDSUR 08:41
PROVIDERS: ADMIT Orthopaedic Surgery; ATTEND Orthopaedic Surgery
CPT/HCPCS: 97161